=== PATIENT | male | born 1955 | race African-American/Black ===

== ENCOUNTER 2020-07-16 11:56 | Day surgery (SDC) | payer OTHER, SELFPAY ==
[2020-07-09 17:42] VITALS: BMI 64.4
--- NOTE | 2020-07-15 09:19 | HO.ANESPROP2 ---
Documented by User: Ashley Bauer 07/15/20 09:20 HPI - Anesthesia Eval Consult details Narrative: 65yo M for Colonoscopy PMFSH Past Medical History Medical History Arthritis Asthma Diabetes HTN (hypertension) Hypercholesteremia Surgical History Surgical History History of colonoscopy Social History Social History Smoking Status: Former smoker Smoking Quit Date: 2009 Use of substances other than those prescribed or required for medical reasons: No Advance Directives: Yes Advance Directives Information Provided: Yes Advance Directives on File: No Advance Directives Date on File: 09/17/00 Meds Allergies Allergy/AdvReac Type Severity Reaction Status Date / Time hydrochlorothiazide Allergy Intermediate LEG Verified 07/16/20 12:18 [HYDROCHLOROTHIAZIDE] CRAMPING Home Medications Medication Instructions Recorded Confirmed Type acetaminophen [Tylenol] 325 mg PO DAILY 07/09/20 07/09/20 History albuterol sulfate 2 puff INHALATION Q4-6H PRN 07/09/20 07/09/20 History amlodipine 10 mg PO DAILY 07/09/20 07/09/20 History diclofenac potassium 50 mg PO BID 07/09/20 07/09/20 History fluticasone propionate [Flovent] 1 puff INHALATION BID 07/09/20 07/09/20 History ipratropium-albuterol [Combivent 1 puff INHALATION QID 07/09/20 07/09/20 History Respimat] lisinopril 40 mg PO DAILY 07/09/20 07/09/20 History metformin 500 mg PO DAILY 07/09/20 07/09/20 History metoprolol succinate 37.5 mg PO DAILY 07/09/20 07/09/20 History naproxen sodium [Aleve] 220 mg PO DAILY 07/09/20 07/09/20 History omega 7-zdj-qyv-fish oil [Fish Oil] 1 cap PO DAILY 07/09/20 07/09/20 History pravastatin 40 mg PO DAILY 07/09/20 07/09/20 History Exam Exam Date and Time: July 15, 2020918 Height,Weight and Vital Signs: Height 5 ft 9 in Weight 198 kg Assessment and Plan Assessment Anesthesia Assessment: Chart Reviewed Documented by User: Malina Stewart 07/16/20 13:33 PMF Past Medical History Medical History Arthritis Asthma Diabetes HTN (hypertension) Hypercholesteremia Surgical History Surgical History History of colonoscopy Social History Social History Smoking Status: Former smoker Smoking Quit Date: 2009 Use of substances other than those prescribed or required for medical reasons: No Advance Directives: Yes Advance Directives Information Provided: Yes Advance Directives on File: No Advance Directives Date on File: 09/17/00 Meds Allergies Allergy/AdvReac Type Severity Reaction Status Date / Time hydrochlorothiazide Allergy Intermediate LEG Verified 07/16/20 12:18 [HYDROCHLOROTHIAZIDE] CRAMPING Home Medications Medication Instructions Recorded Confirmed Type acetaminophen [Tylenol] 325 mg PO DAILY 07/09/20 07/09/20 History albuterol sulfate 2 puff INHALATION Q4-6H PRN 07/09/20 07/09/20 History amlodipine 10 mg PO DAILY 07/09/20 07/09/20 History diclofenac potassium 50 mg PO BID 07/09/20 07/09/20 History fluticasone propionate [Flovent] 1 puff INHALATION BID 07/09/20 07/09/20 History ipratropium-albuterol [Combivent 1 puff INHALATION QID 07/09/20 07/09/20 History Respimat] lisinopril 40 mg PO DAILY 07/09/20 07/09/20 History metformin 500 mg PO DAILY 07/09/20 07/09/20 History metoprolol succinate 37.5 mg PO DAILY 07/09/20 07/09/20 History naproxen sodium [Aleve] 220 mg PO DAILY 07/09/20 07/09/20 History omega 0-dce-xgx-fish oil [Fish Oil] 1 cap PO DAILY 07/09/20 07/09/20 History pravastatin 40 mg PO DAILY 07/09/20 07/09/20 History Exam Airway Mallampati Class: II TM Dist: >3cm Denture: Upper and Lower Heart: RRR Lungs: CTA
[2020-07-16 12:22] LABS: Glucose, Whole Blood 103 mg/dL (60-115)
[2020-07-16 12:25] VITALS: BP 178/94; PULSE 77; RESP 18; TEMP 36.3; O2SAT 98
[2020-07-16] MEDS: Lactated Ringers 1,000 ML 100 ML IVCONT (12:46)
--- NOTE | 2020-07-16 13:33 | P.CONAN_ITS ---
[facility] Past Medical History Medical History Arthritis Asthma Diabetes HTN (hypertension) Hypercholesteremia Surgical History Surgical History History of colonoscopy Social History Social History Smoking Status: Former smoker Smoking Quit Date: 2009 Use of substances other than those prescribed or required for medical reasons: No Advance Directives: Yes Advance Directives Information Provided: Yes Advance Directives on File: No Advance Directives Date on File: 09/17/00 Meds Allergies Allergy/AdvReac Type Severity Reaction Status Date / Time hydrochlorothiazide Allergy Intermediate LEG Verified 07/16/20 12:18 [HYDROCHLOROTHIAZIDE] CRAMPING Home Medications Medication Instructions Recorded Confirmed Type acetaminophen [Tylenol] 325 mg PO DAILY 07/09/20 07/09/20 History albuterol sulfate 2 puff INHALATION Q4-6H PRN 07/09/20 07/09/20 History amlodipine 10 mg PO DAILY 07/09/20 07/09/20 History diclofenac potassium 50 mg PO BID 07/09/20 07/09/20 History fluticasone propionate [Flovent] 1 puff INHALATION BID 07/09/20 07/09/20 History ipratropium-albuterol [Combivent 1 puff INHALATION QID 07/09/20 07/09/20 History Respimat] lisinopril 40 mg PO DAILY 07/09/20 07/09/20 History metformin 500 mg PO DAILY 07/09/20 07/09/20 History metoprolol succinate 37.5 mg PO DAILY 07/09/20 07/09/20 History naproxen sodium [Aleve] 220 mg PO DAILY 07/09/20 07/09/20 History omega 3-rpg-owt-fish oil [Fish Oil] 1 cap PO DAILY 07/09/20 07/09/20 History pravastatin 40 mg PO DAILY 07/09/20 07/09/20 History Exam Exam Date and Time: July 16, 2020 1333 Height,Weight and Vital Signs: Height 5 ft 9 in Weight 198 kg Last Vital Signs Temp 97.3 F 07/16/20 12:25 Pulse 77 07/16/20 12:25 Resp 18 12/01/20 12:25 BP 178/94 H 07/16/20 12:25 Pulse Ox 98 07/16/20 12:25 Pertinent Lab Results Pertinent Lab Results: Laboratory Tests 07/16/20 12:19 POC Glucose 103 Assessment and Plan Assessment Anesthesia Assessment: Anesthesia Plan Discussed and Chart Reviewed Final Anesthetic Review NPO: Yes ASA Class: II Final Preanesthetic Review: No Changes in Pt Med Stat, Consent Obtained/Reviewed and Anes Risks/Benef Reviewed Patient Risk: Intermediate Procedure Risk: Low Anesthetic Plan Anesthetic Plan: MAC: Disposition: Standard PACU
--- NOTE | 2020-07-16 13:44 | MHC.SHP ---
Pre-Procedural Eval Section B Chief Complaint: SCREENING Relevant Family History (Specify if Yes): No Relevant Social History: None Present Medications: see Short Stay Collaborative assessment Medical History: Significant History (HTN, asthma) History of Previous Operations: No relevant previous surgery Allergies: Allergies Allergy/AdvReac Type Severity Reaction Status Date / Time hydrochlorothiazide Allergy Intermediate LEG Verified 07/16/20 12:18 [HYDROCHLOROTHIAZIDE] CRAMPING Review of Systems Sugical H&P ROS: Negative: Constitution, Cardiovascular, Respiratory, Neurological, Psychiatric, Hem-Onc, Allergic/Immunologic, Gastrointestinal, Genitourinary, Musculoskeletal, Integumentary, Endocrine and Eyes/Ears/Nose/Throat Exam Surgical H&P Exam: Normal: HEENT, Normal: Heart, Normal: Lungs, Normal: Extremities, Normal: Abdomen, Normal: Skin and Normal: Neurological Plan Diagnosis/Plan: Unchanged Patient has been examined and remains a candidate for the planned procedure
--- NOTE | 2020-07-16 14:02 | PM.OP ---
Brief Operative Note Date of Service: 07/16/20 Pre-op diagnosis: colon screen Post-op diagnosis: same Procedure: see op note Surgeon: Jody Sanchez MD Anesthesia: MAC Estimated blood loss (mL): 0 Condition: stable Disposition: PACU
--- NOTE | 2020-07-16 14:03 | W.PM.OPN ---
Operative Note Operative Note Date of Service: 07/16/20 Narrative: Operative Information Procedure Description: Colonoscopy COLONOSCOPY Instrument: Olympus variable stiffness pediatric scope 190L Colonoscopy Monitoring: Vital signs and clinical assessment, continuous EKG monitoring, Pulse oximetry, Carbon Dioxide monitoring and blood pressure monitoring were done throughout the procedure. Colon withdrawal time was 12 minutes. Procedure: The patient was placed in the left lateral decubitis position and pre-procedure medications were administered. After a digital rectal examination of the ano-rectum, the video colonoscope was inserted into the rectum and advanced through the colon to the cecum/TI. The colonoscope was slowly withdrawn in a retrograde panoramic fashion and the colon mucosa was carefully examined including a retroflexed view of the rectum. Findings and interventions are described below. Procedure Difficulty: easy Findings: Terminal Ileum-normal Cecum:normal Ascending Colon: normal Transverse Colon -normal Descending Colon:normal Sigmoid Colon: normal Rectum: Retroflexion with small to moderate sized internal hemorrhoids, grade I Anorectum - normal Colon preparation: [place] Bowel Preparation Scale Right colon; 1 Transverse colon: 1 Left colon; 1 (0 = Unprepared colon segment with mucosa not seen due to solid stool that cannot be cleared. 1 = Portion of mucosa of the colon segment seen, but other areas of the colon segment not well seen due to staining, residual stool and/or opaque liquid. 2 = Minor amount of residual staining, small fragments of stool and/or opaque liquid, but mucosa of colon segment seen well. 3 = Entire mucosa of colon segment seen well with no residual staining, small fragments of stool or opaque liquid) Impression and Post Procedure Diagnosis: internal hemorrhoids Plan: High fiber diet leaflet Avoid straining at stool, epsom salts and sitz bath, anusol supps or cream Repeat Colonoscopy in 1 year due to prep, review instructions for next time Above findings were reviewed with the patient and relevant handouts were provided if indicated.
[2020-07-16 14:08] VITALS: BP 116/63; PULSE 63; RESP 16; TEMP 37.3; O2SAT 96
[2020-07-16 14:26] VITALS: BP 131/76; PULSE 56; RESP 18; TEMP 37.2
== END 2020-07-16 14:42 | disposition home or self-care (01) ==
PROVIDERS: Visit Provider Internal Medicine Gastroenterology
PROC: 0DJD8ZZ Inspection of Lower Intestinal Tract, Via Natural or Artificial Opening Endoscopic (ICD-10-PCS; CPT 45378; principal; 2020-07-16 13:30)
DX: Z12.11 Encounter for screening for malignant neoplasm of colon (principal); K64.0 First degree hemorrhoids; Z86.010 Personal history of colon polyps; I10 Essential (primary) hypertension; E11.9 Type 2 diabetes mellitus without complications; Z79.84 Long term (current) use of oral hypoglycemic drugs; Z79.899 Other long term (current) drug therapy
CPT/HCPCS: G0105; 82947

== ENCOUNTER → 2020-07-23 09:09 | Outpatient (BNVA) | payer OTHER, SELFPAY | PROVIDERS: Visit Provider Physician Assistant | DX: Z76.89 Persons encountering health services in other specified circumstances (principal) ==

== ENCOUNTER 2021-01-31 14:45 | Outpatient (REF) | payer MEDICARE, OTHER, SELFPAY ==
--- NOTE | ~2021-01-31 | XR_ITS ---
EXAMINATION: BILATERAL HIP AND RIGHT KNEE X-RAY CLINICAL INFORMATION: Pain COMPARISON: None TECHNIQUE: One view of the pelvis and 2 views of each hip. 4 views of the right knee FINDINGS: Right knee: No fracture or dislocation is seen. There is arthritis at the femoral tibial and patellofemoral joints with joint space narrowing and osteophyte formation. The patella appears slightly high questionable for patella simon. There is a soft tissue swelling over the patellar tendon. Bone alignment is otherwise normal. There is a small joint effusion. Pelvis and bilateral hip x-ray: There is diffuse increase in size, sclerosis and cortical thickening of the left pelvis suggestive of Paget's disease. There is arthritis at both hip joints with joint space narrowing and osteophyte formation. No fracture or dislocation is seen. There are degenerative changes of the visualized lower lumbar spine. Soft tissues are unremarkable. XR/XR knee RT 4V IMPRESSION: Right knee: Degenerative changes of the patellofemoral and femoral tibial joints. High patella questionable for patella simon and soft tissue swelling over the patellar tendon. Small joint effusion. 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 Bilateral hip arthritis.
--- NOTE | ~2021-01-31 | XR_ITS ---
EXAMINATION: BILATERAL HIP AND RIGHT KNEE X-RAY CLINICAL INFORMATION: Pain COMPARISON: None TECHNIQUE: One view of the pelvis and 2 views of each hip. 4 views of the right knee FINDINGS: Right knee: No fracture or dislocation is seen. There is arthritis at the femoral tibial and patellofemoral joints with joint space narrowing and osteophyte formation. The patella appears slightly high questionable for patella simon. There is a soft tissue swelling over the patellar tendon. Bone alignment is otherwise normal. There is a small joint effusion. Pelvis and bilateral hip x-ray: There is diffuse increase in size, sclerosis and cortical thickening of the left pelvis suggestive of Paget's disease. There is arthritis at both hip joints with joint space narrowing and osteophyte formation. No fracture or dislocation is seen. There are degenerative changes of the visualized lower lumbar spine. Soft tissues are unremarkable. XR/XR hips ANGELA min 3V IMPRESSION: Right knee: Degenerative changes of the patellofemoral and femoral tibial joints. High patella questionable for patella simon and soft tissue swelling over the patellar tendon. Small joint effusion. 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 Bilateral hip arthritis.
== END 2021-01-31 14:46 | disposition home or self-care (01) ==
LOC: HO.XRAY 14:45
PROVIDERS: PCP Registered Nurse; Referring Provider Registered Nurse; Visit Provider Nurse Practitioner Primary Care
DX: M25.551 Pain in right hip (principal); M25.552 Pain in left hip; M25.561 Pain in right knee
CPT/HCPCS: 73522; 73564

== ENCOUNTER 2021-03-20 08:40 | Outpatient (REF) | payer MEDICARE, OTHER, SELFPAY ==
--- NOTE | ~2021-03-20 | US_ITS ---
EXAMINATION: US ABDOMEN COMPLETE CLINICAL INFORMATION: Elevated liver function tests. COMPARISON: CT abdomen with contrast dated 12/14/2007. TECHNIQUE: Real-time imaging of the abdominal viscera. FINDINGS: PANCREAS: Pancreas is completely obscured by overlying gas. ABDOMINAL AORTA: The proximal, mid, and distal segments are normal in caliber. INFERIOR VENA CAVA: Visualized portions are normal. LIVER: Normal. The liver is normal in size. The liver contour is normal. Parenchymal echogenicity is normal. No focal hepatic lesion. There is no intrahepatic biliary duct dilatation seen. GALLBLADDER: The gallbladder wall thickness is 0.25 cm. The gallbladder is physiologically distended without evidence of stones, sludge, polyps, wall thickening or pericholecystic fluid. COMMON BILE DUCT: Normal in caliber measuring 0.42 cm in diameter. RIGHT KIDNEY: There is an anechoic cyst in the right kidney lower pole measuring 1.0 x 0.92 x 1.1 cm. No hydronephrosis or renal calculi. The kidney measures 10.0 cm in maximum dimension. LEFT KIDNEY: There is an anechoic cyst in the midpole measuring 3.3 x 3.0 x 2.6 cm. No hydronephrosis or renal calculi. The kidney measures 10.5 cm in maximum dimension. SPLEEN: Normal. The spleen measures 7.8 cm in maximum dimension. FREE FLUID: None. US/US abdomen complete IMPRESSION: Bilateral renal cysts. No echogenic stones or hydronephrosis. The rest of the abdominal ultrasound is unremarkable.
== END 2021-03-20 08:41 | disposition home or self-care (01) ==
LOC: HO.HMGCX 08:40
PROVIDERS: Visit Provider Nurse Practitioner Primary Care
DX: R74.8 Abnormal levels of other serum enzymes (principal)
CPT/HCPCS: 76700

== ENCOUNTER → 2021-10-22 14:22 | Outpatient (BNVA) | payer MEDICARE, OTHER, SELFPAY | PROVIDERS: Visit Provider Physician Assistant | DX: Z01.818 Encounter for other preprocedural examination (principal) | CPT/HCPCS: 99212 ==

== ENCOUNTER 2021-11-25 08:04 | Day surgery (SDC) | payer MEDICARE, OTHER, SELFPAY ==
[2021-11-17 09:24] VITALS: BMI 32.0
--- NOTE | 2021-11-24 11:20 | HO.ANESPROP2 ---
Documented by User: Ashley Bauer NP 11/24/21 11:20 HPI - Anesthesia Eval Consult details Narrative: 66yo M for Colonoscopy PMFSH Active Problems Active Problems: All Active Problems (Updated 07/15/20 @ 09:20 by Ashley Bauer NP) History of colonoscopy (Acute) H/O colonoscopy with polypectomy (Acute) Past Medical History Medical History Arthritis Asthma Diabetes HTN (hypertension) Hypercholesteremia Family History Family History Father No problems noted. Surgical History Surgical History History of colonoscopy Social History Social History (Updated 10/22/21 @ 14:46 by Ree Lynn PA-C) Household Members Other:: Are you a primary primary care pediatrician to a significant other at home: No Do you presently have visiting nurse or other home services: No Alcohol intake: never Patient Tobacco Use Status: Former Tobacco user Quit Date: 2000 Tobacco use type: Cigarette Are you DNR?: No Advance Directives: Yes Advance Directives Information Provided: No Advance Directives on File: Yes Advance Directives Date on File: 09/17/00 Recently lost weight without trying: No Eating poorly because of decreased appetite: No Nutrition Risks: No Nutritional Risk 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 Allergies Allergy/AdvReac Type Severity Reaction Status Date / Time hydrochlorothiazide Allergy Intermediate LEG Verified 11/17/21 09:48 [HYDROCHLOROTHIAZIDE] CRAMPING Home Medications Medication Instructions Recorded Confirmed Last Taken Type acetaminophen 325 mg tablet 325 mg PO DAILY PRN 07/09/20 11/17/21 Unknown History (Tylenol) albuterol sulfate 90 mcg/actuation 2 puff INHALATION Q4-6H PRN 07/09/20 11/17/21 Unknown History aerosol inhaler amlodipine 10 mg tablet 10 mg PO DAILY 07/09/20 11/17/21 11/25/21 History diclofenac potassium 50 mg tablet 50 mg PO BID 07/09/20 11/17/21 11/23/21 History fluticasone propionate 110 1 puff INHALATION BID 07/09/20 11/17/21 Unknown History mcg/actuation HFA aerosol inhaler ipratropium 20 mcg-albuterol 100 1 puff INHALATION QID 07/09/20 11/17/21 Unknown History mcg/actuation mist for inhalation (Combivent Respimat) lisinopril 40 mg tablet 40 mg PO DAILY 07/09/20 11/17/21 Unknown History metformin 500 mg tablet 500 mg PO DAILY 07/09/20 11/17/21 Unknown History metoprolol succinate 25 mg 37.5 mg PO DAILY 07/09/20 11/17/21 11/25/21 History tablet,extended release 24 hr naproxen sodium 220 mg capsule 220 mg PO DAILY PRN 07/09/20 11/17/21 07/09/20 History (Aleve) 0900 omega 4-gqz-slj-fish oil 60 mg-90 1 cap PO DAILY 07/09/20 11/17/21 11/23/21 History mg-500 mg capsule (Fish Oil) pravastatin 40 mg tablet 40 mg PO DAILY 07/09/20 11/17/21 Unknown History Exam Exam Date and Time: November 24, 2021 1120 Height,Weight and Vital Signs: Height 5 ft 9 in Weight 98.43 kg Assessment and Plan Assessment Anesthesia Assessment: Chart Reviewed Documented by User: Sky Wolff MD 11/25/21 09:51 [facility] Past Medical History Medical History Arthritis Asthma Diabetes HTN (hypertension) Hypercholesteremia Functional capacity: independent ambulation Family History Family History Father No problems noted. Family history of problems with anesthesia: No Surgical History Surgical History History of colonoscopy History of Problems with Anesthesia: No Social History Social History (Updated 10/22/21 @ 14:46 by Ree Lynn PA-C) Household Members Other:: Are you a primary primary care pediatrician to a significant other at home: No Do you presently have visiting nurse or other home services: No Alcohol intake: never Patient Tobacco Use Status: Former Tobacco user Quit Date: 2000 Tobacco use type: Cigarette Are you DNR?: No Advance Directives: Yes Advance Directives Information Provided: No Advance Directives on File: Yes Advance Directives Date on File: 09/17/00 Recently lost weight without trying: No Eating poorly because of decreased appetite: No Nutrition Risks: No Nutritional Risk 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 Allergies Allergy/AdvReac Type Severity Reaction Status Date / Time hydrochlorothiazide Allergy Intermediate LEG Verified 11/17/21 09:48 [HYDROCHLOROTHIAZIDE] CRAMPING Home Medications Medication Instructions Recorded Confirmed Last Taken Type acetaminophen 325 mg tablet 325 mg PO DAILY PRN 07/09/20 11/17/21 Unknown History (Tylenol) albuterol sulfate 90 mcg/actuation 2 puff INHALATION Q4-6H PRN 07/09/20 11/17/21 Unknown History aerosol inhaler amlodipine 10 mg tablet 10 mg PO DAILY 07/09/20 11/17/21 11/25/21 History diclofenac potassium 50 mg tablet 50 mg PO BID 07/09/20 11/17/21 11/23/21 History fluticasone propionate 110 1 puff INHALATION BID 07/09/20 11/17/21 Unknown History mcg/actuation HFA aerosol inhaler ipratropium 20 mcg-albuterol 100 1 puff INHALATION QID 07/09/20 11/17/21 Unknown History mcg/actuation mist for inhalation (Combivent Respimat) lisinopril 40 mg tablet 40 mg PO DAILY 07/09/20 11/17/21 Unknown History metformin 500 mg tablet 500 mg PO DAILY 07/09/20 11/17/21 Unknown History metoprolol succinate 25 mg 37.5 mg PO DAILY 07/09/20 11/17/21 11/25/21 History tablet,extended release 24 hr naproxen sodium 220 mg capsule 220 mg PO DAILY PRN 07/09/20 11/17/21 07/09/20 History (Aleve) 0900 omega 2-pku-aqc-fish oil 60 mg-90 1 cap PO DAILY 07/09/20 11/17/21 11/23/21 History mg-500 mg capsule (Fish Oil) pravastatin 40 mg tablet 40 mg PO DAILY 07/09/20 11/17/21 Unknown History Exam Airway Mallampati Class: II Partial: Upper and Lower Loose/Missing/Broken Teeth: Yes Heart: RRR Lungs: bl breath sounds Assessment and Plan Assessment Anesthesia Assessment: Anesthesia Plan Discussed Final Anesthetic Review Family History of Problems with Anesthesia: No History of Problems with Anesthesia: No NPO: Yes ASA Class: II Final Preanesthetic Review: Meds/Allgs Chart Reviewed, Consent Obtained/Reviewed and Anes Risks/Benef Reviewed Patient Risk: Intermediate Procedure Risk: Intermediate Anesthetic Plan Anesthetic Plan: MAC:
[2021-11-25 08:50] VITALS: BP 147/80; PULSE 74; RESP 16; TEMP 37.1; O2SAT 96
[2021-11-25 08:56] LABS: Glucose, Whole Blood 139 mg/dL (60-115)
[2021-11-25] MEDS: Lactated Ringers 1,000 ML 100 ML IVCONT (09:02)
--- NOTE | 2021-11-25 10:04 | MHC.SHP ---
Pre-Procedural Eval Section A Date of Service: 11/25/21 Section B Chief Complaint: Other specified postprocedural states Relevant Family History (Specify if Yes): No Relevant Social History: None Present Medications: see Short Stay Collaborative assessment Medical History: Significant History (Arthritis Asthma Diabetes HTN (hypertension) Hypercholesteremia) History of Previous Operations: Relevant previous surgery/procedure and date(s) (2019) Allergies: Allergies Allergy/AdvReac Type Severity Reaction Status Date / Time hydrochlorothiazide Allergy Intermediate LEG Verified 11/17/21 09:48 [HYDROCHLOROTHIAZIDE] CRAMPING Review of Systems Sugical H&P ROS: Negative: Constitution, Cardiovascular, Respiratory, Neurological, Psychiatric, Hem-Onc, Allergic/Immunologic, Gastrointestinal, Genitourinary, Musculoskeletal, Integumentary, Endocrine and Eyes/Ears/Nose/Throat Exam Surgical H&P Exam: Normal: HEENT, Normal: Heart, Normal: Lungs, Normal: Extremities, Normal: Abdomen, Normal: Skin and Normal: Neurological Plan Diagnosis/Plan: Unchanged I have reviewed the history and physical and performed a pertinent physical examination on my patient. No changes have occurred unless specified.
--- NOTE | 2021-11-25 10:05 | P.BOP_ITS ---
Brief Operative Note Date of Service: 11/25/21 Pre-op diagnosis: screening colonoscopy, hx of polyps Post-op diagnosis: same Procedure: see op note Surgeon: Jody Sanchez MD Anesthesia: MAC Was an Net Making Supervisor used for this Procedure?: No Estimated blood loss (mL): 0 Condition: stable Disposition: PACU
--- NOTE | 2021-11-25 10:06 | W.PM.OPN ---
Operative Note Operative Note Date of Service: 11/25/21 Narrative: Operative Information Procedure Description: Colonoscopy Indication: screening colonoscopy, hx of polyps Anesthesia: MAC COLONOSCOPY Instrument: Olympus variable stiffness ADULT scope 190L Colonoscopy Monitoring: Vital signs and clinical assessment, continuous EKG monitoring, Pulse oximetry, Carbon Dioxide monitoring and blood pressure monitoring were done throughout the procedure. Colon withdrawal time was 10 minutes. Procedure: The patient was placed in the left lateral decubitis position and pre-procedure medications were administered. After a digital rectal examination of the ano-rectum, the video colonoscope was inserted into the rectum and advanced through the colon to the cecum/TI. The colonoscope was slowly withdrawn in a retrograde panoramic fashion and the colon mucosa was carefully examined including a retroflexed view of the rectum. Findings and interventions are described below. Procedure Difficulty: easy Findings: Terminal Ileum-normal Cecum:normal Ascending Colon: 3-4 mm sessile polyp removed with cold forceps Transverse Colon -normal Descending Colon:normal Sigmoid Colon: normal Rectum: Retroflexion with small internal hemorrhoids, grade I 4-5 mm sessile polyp removed with cold forceps Anorectum - normal Colon preparation: [place] Bowel Preparation Scale Right colon; 3 Transverse colon: 3 Left colon; 3 (0 = Unprepared colon segment with mucosa not seen due to solid stool that cannot be cleared. 1 = Portion of mucosa of the colon segment seen, but other areas of the colon segment not well seen due to staining, residual stool and/or opaque liquid. 2 = Minor amount of residual staining, small fragments of stool and/or opaque liquid, but mucosa of colon segment seen well. 3 = Entire mucosa of colon segment seen well with no residual staining, small fragments of stool or opaque liquid) Impression and Post Procedure Diagnosis: polyps internal hemorrhoids Plan: High fiber diet leaflet Avoid straining at stool, epsom salts and sitz bath, anusol supps or cream Repeat Colonoscopy in 5 years due to personal hx of recurrent polyps or earlier if clinically indicated Above findings were reviewed with the patient and relevant handouts were provided if indicated.
[2021-11-25 10:40] VITALS: BP 99/63; PULSE 65; RESP 16; TEMP 36.3; O2SAT 97
[2021-11-25 10:55] VITALS: BP 107/68; PULSE 60; RESP 17; O2SAT 99
[2021-11-25 11:10] VITALS: BP 138/68; PULSE 60; RESP 17; TEMP 36.3; O2SAT 99
== END 2021-11-25 11:31 | disposition home or self-care (01) ==
PROVIDERS: Visit Provider Internal Medicine Gastroenterology
PROC: 0DJD8ZZ Inspection of Lower Intestinal Tract, Via Natural or Artificial Opening Endoscopic (ICD-10-PCS; CPT 45378; principal; 2021-11-25 09:20)
DX: Z12.11 Encounter for screening for malignant neoplasm of colon (principal); Z86.010 Personal history of colon polyps; D12.2 Benign neoplasm of ascending colon; K62.1 Rectal polyp; K64.0 First degree hemorrhoids; I10 Essential (primary) hypertension; J45.909 Unspecified asthma, uncomplicated; E78.00 Pure hypercholesterolemia, unspecified; E11.9 Type 2 diabetes mellitus without complications; Z79.84 Long term (current) use of oral hypoglycemic drugs; Z79.51 Long term (current) use of inhaled steroids; Z79.899 Other long term (current) drug therapy; Z88.8 Allergy status to other drugs, medicaments and biological substances; Z87.891 Personal history of nicotine dependence; Z86.16 Personal history of COVID-19
CPT/HCPCS: 45380; 82947; 88305

== ENCOUNTER → 2021-12-10 14:44 | Outpatient (BNVA) | payer MEDICARE, OTHER, SELFPAY | PROVIDERS: Visit Provider Physician Assistant | DX: K64.9 Unspecified hemorrhoids (principal); D12.6 Benign neoplasm of colon, unspecified | CPT/HCPCS: 99202 ==

== ENCOUNTER 2021-12-23 14:14 | Outpatient (REF) | payer MEDICARE, OTHER, SELFPAY ==
--- NOTE | ~2021-12-23 | US_ITS ---
EXAMINATION: US RETROPERITONEAL LIMITED (AORTA) CLINICAL INFORMATION: History of nicotine dependence. AAA screening. COMPARISON: December 14, 2007 and March 20, 2021 TECHNIQUE: Cole-scale, color Doppler and spectral Doppler evaluation of the abdominal aorta. FINDINGS: No significant atherosclerotic disease is appreciated. The measurements of the aorta in maximum AP and transverse dimensions respectively are as follows: Proximal: 2.7 x 2.9 cm. Mid: 2.2 x 2.1 cm. Distal: 1.8 x 1.8 cm. PSV: 114 cm/s. The measurements of the common iliac arteries in maximum AP and TRV dimensions are as follows: Right Common Iliac Artery: 1.3 x 1.5 cm. Left Common Iliac Artery: 1.3 x 1.4 cm. US/US aorta IMPRESSION: No abdominal aortic aneurysm. No significant atherosclerotic disease appreciated..
== END 2021-12-23 14:15 | disposition home or self-care (01) ==
LOC: HO.US 14:14
PROVIDERS: Visit Provider Nurse Practitioner
DX: Z13.6 Encounter for screening for cardiovascular disorders (principal); Z87.891 Personal history of nicotine dependence
CPT/HCPCS: 76775

== ENCOUNTER 2024-05-22 08:15 | Outpatient (REF) | payer MEDICARE, OTHER, SELFPAY ==
--- NOTE | ~2024-05-22 | US_ITS ---
EXAMINATION: US TRIPLEX LOWER EXTREMITY, LEFT CLINICAL INFORMATION: LLE swelling COMPARISON: None available. TECHNIQUE: Color-flow triplex imaging with spectral analysis and compression Doppler were performed on the left lower extremity. FINDINGS: Respiratory variation, normal compression and augmented flow are noted throughout the left lower extremity. The visualized common femoral vein, superficial femoral vein, profunda femoral vein, popliteal vein and midcalf peroneal and posterior tibial venous segments show no evidence of deep venous thrombosis. There is no West's cyst. US/US venous duplex LE LT IMPRESSION: No evidence of deep venous thrombosis involving the left lower extremity. Electronically signed by: Janet Muñoz MD 05/22/2024 09:01 AM EDT RP
== END 2024-05-22 08:16 | disposition home or self-care (01) ==
LOC: HO.HMGCX 08:15
PROVIDERS: PCP Nurse Practitioner Primary Care; Visit Provider Nurse Practitioner Primary Care
DX: R60.0 Localized edema (principal)
CPT/HCPCS: 93971

== ENCOUNTER 2024-06-22 11:09 | Outpatient (REF) | payer MEDICARE, OTHER, SELFPAY ==
[2024-06-22 13:20] LABS: MANUAL DIFF FLAG NO
[2024-06-22 13:46] LABS: Basophils Percent Auto 0.3 % (0-2); Eosinophils Percent Auto 0.3 % (0-4); Hematocrit 39.2 % (42.0-52.0); Hemoglobin 13.1 g/dl (14.0-18.0); Imm Gran Abs Auto 0.03 X10*3/uL (0.00-0.03); Imm Gran Pct Auto 0.4 % (0.0-0.4); Lymphocytes Absolute Auto 2.1 X10*3/uL (1.2-4.9); Lymphocytes Percent Auto 27.3 % (20-40); Mean Corpuscular HGB Conc 33.4 g/dl (31.0-36.0); Mean Corpuscular Hemoglobin 28.8 pg (27.0-33.0); Mean Corpuscular Volume 86.2 fL (80.0-98.0); Mean Platelet Volume 13.1 fL (9.4-12.4); Monocytes Absolute Auto 0.4 X10*3/uL (0.1-1.2); Monocytes Percent Auto 5.2 % (2-11); Neutrophils Percent Auto 66.5 % (45-73); Platelet Count 210 X10*3/uL (160-400); Red Blood Count 4.55 X10*6/uL (4.60-5.80); Red Cell Distribution Width 13.8 % (11.0-16.0); White Blood Count 7.6 X10*3/uL (4.8-10.8)
[2024-06-22 13:53] LABS: Alanine Aminotransferase 10 U/L (0-40); Albumin Level 4.3 g/dL (3.5-5.0); Alkaline Phosphatase 84 U/L (39-117); Anion Gap 12 (12-20); Aspartate Amino Transferase 18 U/L (5-37); Bilirubin Total 0.6 mg/dL (0.0-1.0); Blood Urea Nitrogen 11 mg/dL (9-16); Calcium 9.3 mg/dL (8.4-10.2); Carbon Dioxide 26 mmol/L (22-29); Chloride 105 mmol/L (96-108); Cholesterol 187 mg/dL (<200); Estimated Glomerular Filt Rate > 60; Glucose Random 117 mg/dL (60-115); HDL Cholesterol 62 mg/dL (>40); LDL Cholesterol Calculated 103 mg/dL (<100); Potassium 4.1 mmol/L (3.3-5.1); Sodium 139 mmol/L (135-145); Total Protein 7.7 g/dL (6.5-8.0); Triglycerides 114 mg/dL (<150)
[2024-06-22 14:02] LABS: Estimated Average Glucose 128 mg/dL; Hemoglobin A1C 150.1828 umol/L; Hemoglobin A1c % 6.1 % (<6.0); Total Hemoglobin (HGBA1C) 3471.8411 umol/L
[2024-06-22 14:05] LABS: Creatinine Urine 164.94 mg/dL; Microalbum/Creatinine Ratio Ur 22.4 ug/mg cr (<30)
== END 2024-06-22 11:10 | disposition home or self-care (01) ==
LOC: HO.HHCL 11:09
PROVIDERS: Visit Provider Nurse Practitioner Primary Care
DX: I15.2 Hypertension secondary to endocrine disorders (principal); E11.59 Type 2 diabetes mellitus with other circulatory complications
CPT/HCPCS: 36415; 80053; 80061; 82043; 82570; 83036; 85025

== ENCOUNTER → 2025-01-23 14:08 | Outpatient (BNVA) | payer MEDICARE, SELFPAY | PROVIDERS: PCP Nurse Practitioner Primary Care; Visit Provider Internal Medicine Rheumatology ==

== ENCOUNTER → 2025-02-12 08:33 | Outpatient (REF) | payer MEDICARE, SELFPAY | LOC: HO.CARD 08:33 | PROVIDERS: PCP Nurse Practitioner Primary Care; Visit Provider Nurse Practitioner Primary Care | DX: I49.9 Cardiac arrhythmia, unspecified (principal) | CPT/HCPCS: 93225 ==

== ENCOUNTER → 2025-02-12 08:35 | Outpatient (BNV) | payer MEDICARE, SELFPAY | PROVIDERS: PCP Nurse Practitioner Primary Care; Visit Provider Internal Medicine | DX: R00.1 Bradycardia, unspecified (principal) | CPT/HCPCS: 93227 ==

== ENCOUNTER 2025-04-24 13:04 | Outpatient (AMB) | payer MEDICARE, SELFPAY ==
--- NOTE | 2025-04-24 13:07 | A.OFFVIS_ITS ---
Vital Signs 04/24/25 13:08 Height 5 ft 9 in Weight 216 lb 11.43 oz BMI 32.0 BP 130/90 H Blood Pressure Location Rt brachial Position Sitting Pulse 55 Pulse Source Pulse Oximeter Pulse Oximetry (%) 98 Oxygen Delivery Method Room Air Intake Visit Reasons: 3 month follow up Intake Note: Patient presents today for arthritis follow up Allergies hydrochlorothiazide (HYDROCHLOROTHIAZIDE) Allergy (Intermediate, Verified 04/24/25 13:07) LEG CRAMPING HPI HPI 3 month follow up: Details: Pain and stiffness from waist down for the last few months. Feels hips pop with certain movements. He has to help is body get up from a squatted position. Rest for 10min contributes to stiffness. Walking for long distance contributes to stiffness. Takes 1500mg in the morning with benefit. 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 He is physically active. [facility] Medical History Tubular adenoma of colon Arthritis Asthma Hypercholesteremia HTN (hypertension) Diabetes Surgical History History of colonoscopy Family History Father No problems noted. Social History Household Members Other:: Are you a primary morning caregiver to a significant other at home: No Do you presently have visiting nurse or other home services: No Alcohol intake: never Patient Tobacco Use Status: Former Tobacco user Tobacco use type: Cigarette Advance Directives Date on File: 09/17/00 Current occupation: deliver [employer] Physical Exam Vital Signs: Last Vital Signs Pulse 55 04/24/25 13:08 BP 130/90 H 04/24/25 13:08 Pulse Ox 98 04/24/25 13:08 Oxygen Delivery Method Room Air 04/24/25 13:08 BMI result Body Mass Index 32.0 Const Other: General: Comfortable Skin: No lesions MSK: Left groin tenderness on palpation. No trochanteric bursa tenderness. Limited full external rotation of bilateral hips. He has pain with external rotation of left hip and groin region. Right knee fuub-bo-lqhyjran effusion, left knee mild effusion. Normal range of motion of bilateral knees. Normal lumbar flexion. No tenderness of lumbar spinous process. Assessment & Plan Assessment & Plan (1) Bilateral primary osteoarthritis of hip: Comment: Likely progressing contributing to groin pain. X-ray October 2023 revealed mild bilateral hip osteoarthritis. We discussed conservative management. Code(s): M16.0 - Bilateral primary osteoarthritis of hip Category: Medical Plan: X-rays bilateral hips and pelvis ordered Labs ordered. After lab results are back, we will send prescription for meloxicam 15 mg daily. Reduce Tylenol to 1000 mg daily a.m.. He is aware that he can take another 1000 mg in the afternoon or evening PRN pain PT ordered for lower extremity strengthening Return to clinic in 3 months (2) Paget's disease of bone: Comment: Initially found incidentally on pelvis x-ray involving left pelvis. Nuclear bone scan confirmed involvement of left ilium, pubis and ischium. Elevated alkaline phosphatase, bone specific alkaline phosphatase, C telopeptide on presentation in 2020. Bone turnover markers normalized after Reclast 07/2021 and 07/2022. Code(s): M88.9 - Osteitis deformans of unspecified bone Category: Medical Plan: Bone turnover markers, calcium, phosphorus, vitamin-D ordered Bone density ordered. Bone densities indicated for osteoporosis screening age 70. Return to clinic in 3 months (3) Osteoporosis screening: Code(s): Z13.820 - Encounter for screening for osteoporosis Category: Medical Plan: See above Orders: Orders PT Evaluation and Treatment Today M16.0 - Bilateral primary osteoarthritis of hip Alanine Aminotransferase Today M88.9 - Osteitis deformans of unspecified bone, Z79.1 - termite helper (current) use of non-steroidal anti-inflammatories (NSAID) Albumin Level Today M88.9 - Osteitis deformans of unspecified bone XR DEXA axial skeleton Today M88.9 - Osteitis deformans of unspecified bone, Z13.820 - Encounter for screening for osteoporosis XR DEXA appendicular skeleton Today M88.9 - Osteitis deformans of unspecified bone, Z13.820 - Encounter for screening for osteoporosis XR hip BI w PEL1V Today M16.0 - Bilateral primary osteoarthritis of hip, M88.9 - Osteitis deformans of unspecified bone Aspartate Amino Transferase Today M88.9 - Osteitis deformans of unspecified bone, Z79.1 - [facility] (current) use of non-steroidal anti-inflammatories (NSAID) Creatinine Today M88.9 - Osteitis deformans of unspecified bone, Z79.1 - [facility] (current) use of non-steroidal anti-inflammatories (NSAID) Collagen Type I C-Telopeptide Today M88.9 - Osteitis deformans of unspecified bone Alkaline Phosphatase Bone Today M88.9 - Osteitis deformans of unspecified bone Phosphorus Today M88.9 - Osteitis deformans of unspecified bone Calcium Today M88.9 - Osteitis deformans of unspecified bone Vitamin D 25-OH Total Today M88.9 - Osteitis deformans of unspecified bone Alkaline Phosphatase Today M88.9 - Osteitis deformans of unspecified bone Coding Level of Care Code Est Pt Level 4 (30387) Complex EM visit Add On G2211 Diagnoses Bilateral primary osteoarthritis of hip M16.0 Paget's disease of bone M88.9 Osteoporosis screening Z13.820
[2025-04-24 13:08] VITALS: BP 130/90; PULSE 55; O2SAT 98; BMI 32.0
--- OUTSIDE RECORDS SUMMARY | 2025-04-24 15:22 | XMS_ITS | Encounter Summary ---
Author Organization [employer] Address [address] [place] [address] Care Team Providers Care Mixer And Blender Name Role Phone Eunice Carmichael Primary Care Provider [phone] Reason for Visit * Reason Comments Med Refill Encounter Details Date Type Department Care Team ([facility] st Contact Info) Description 08/14/2024 Refill [facility] MED & PEDS [address] [place], [place] [phone] Eunice Carmichael ANP [address] [place] [address] Erectile dysfunction due to diseases classified elsewhere Social History Tobacco Use Types Packs/Day Years Used Date Smoking Tobacco: Former Cigarettes Smokeless Tobacco: Never Alcohol Use Standard Drinks/Week Comments Not Currently 0 (1 standard drink = 0.6 oz pur e alcohol) Housing Stability Answer Date Recorded What is your housing situation today? I have harjit arroyo 05/31/[address] you li ve. Do you have problems with any of the following? None of the above 05/31/2023 Food Insecurity Answer Date Recorded Within the past 12 months, y ou worried that your food would run out before you got money to buy more: Never True 05/31/2023 Within the past 12 months,th e food you bought just didn't last and you didn't have enough money to get more: Never True Transportation Answer Date Recorded In the past 12 months, has l ack of transportation kept you from medical appts, meetings, work or from getting things needed for daily living? No 05/31/2023 Utilities Answer Date Recorded In the past 12 months, has t he electric, gas, oil or water company threatened to shut off services in your home? No 05/31/2023 Depression Answer Date Recorded Patient Health Questionnaire-2 Score 0 05/27/2023 Sex and Gender Information Value Date Recorded Sex Assigned at Male 06/15/2022 10:18 AM EDT Legal Sex Male 10:18 AM EDT Gender Identity Male 06/15/2022 10:18 AM EDT Sexual Orientation Straight 06/22/2024 10 :06 AM EST documented as of this encounter Plan of Treatment Upcoming Encounters Date Type Department Care Team (Late st Contact Info) Description 06/18/2025 11:15 AM EST Office Visit [facility] MED[facility]INE [address] [place] [address] Eunice Carmichael ANP [address] [place] [address] documented as of this encounter Visit Diagnoses Diagnosis Erectile dysfunction due to diseases classified elsewhere documented in this encounter Care Teams Mixer And Blender Relationship Specialty Start Date End Date Eunice Carmichael ANP [address] [place] [id number] PCP - General Family Medicine 04/07/22 documented as of this encounter
--- OUTSIDE RECORDS SUMMARY | 2025-04-24 15:22 | XMS_ITS | Encounter Summary ---
Author Organization [employer] Address [address] [place] [address] Care Team Providers Care Spooler Operator Automatic Name Role Phone Eunice Carmichael Primary Care Provider [phone] Encounter Details Date Type Department Care Team ([facility] st Contact Info) Description 04/23/2025 Orders Only [facility] MEDICINE [address] [place], [place] [phone] Eunice Carmichael ANP [address] [place], [place] [phone] Social History Tobacco Use Types Packs/Day Years Used Date Smoking Tobacco: Former Cigarettes Smokeless Tobacco: Never Alcohol Use Standard Drinks/Week Comments Not Currently 0 (1 standard drink = 0.6 oz pur e alcohol) Depression Answer Date Recorded Patient Health Questionnaire-9 Score 0 10/09/2024 Patient Health Questionnaire-9 Score 0 10/09/2024 Last PHQ-9: Questionnaire Data Not on file 0 10/09/2024 Housing Stability Answer Date Recorded What is your housing situation today? I have harjit arroyo 10/09/[address] you li ve. Do you have problems with any of the following? None of the above 10/09/2024 Food Insecurity Answer Date Recorded Within the past 12 months, y ou worried that your food would run out before you got money to buy more: Sometimes True 2024 Within the past 12 months,th e food you bought just didn't last and you didn't have enough money to get more: Sometimes True 10/09/2024 Transportation Answer Date Recorded In the past 12 months, has l ack of transportation kept you from medical appts, meetings, work or from getting things needed for daily living? No 10/09/2024 Utilities Answer Date Recorded In the past 12 months, has t he electric, gas, oil or water company threatened to shut off services in your home? No 10/09/2024 Depression Answer Date Recorded Patient Health Questionnaire-2 Score 0 10/09/2024 Internet Access Answer Date Recorded Internet Access Q1 No 10/09/2024 Internet Access Q2 Not on file 10/09/2024 Sex and Gender Information Value Date Recorded Sex Assigned at Male 06/15/2022 10:18 AM EDT Legal Sex Male 10:18 AM EDT Gender Identity Male 06/15/2022 10:18 AM EDT Sexual Orientation Straight 06/22/2024 10 :06 AM EST documented as of this encounter Plan of Treatment Upcoming Encounters Date Type Department Care Team (Late st Contact Info) Description 06/18/2025 11:15 AM EST Office Visit [facility] MEDICINE [address] [place] [phone] Eunice Carmichael ANP [address] [place] [address] documented as of this encounter Visit Diagnoses Not on filedocumented in this encounter Additional Health Concerns Assessment Noted Time PHQ-9 Depression Total Score: 0 10/09/19 25 4:12 PM EST documented as of this encounter Care Teams Spooler Operator Automatic Relationship Specialty Start Date End Date Eunice Carmichael ANP [address] [place] [id number] PCP - General Family Medicine 04/07/22 documented as of this encounter
--- OUTSIDE RECORDS SUMMARY | 2025-04-24 15:22 | XMS_ITS | Encounter Summary ---
Author Organization [employer] Address [address] [facility] 7t [place] [address] Care Team Providers Care Parliamentary Archivist Name Role Phone Eunice Carmichael Primary Care Provider [phone] Reason for Visit * Reason Comments Med Refill Encounter Details Date Type Department Care Team ([facility] st Contact Info) Description 01/29/2025 [facility]ill [facility] [address] [place], [place] [phone] Eunice Carmichael ANP [address] [place] [address] Moderate persistent asthma without complication Social History Tobacco Use Types Packs/Day Years [...] Description 06/18/2025 11:15 AM EST Office Visit [facility] [address] [place] [address] Eunice Carmichael ANP [address] [place] [address] documented as of this encounter Visit Diagnoses Diagnosis Moderate persistent asthma without complication documented in this encounter Additional Health Concerns Assessment Noted Time PHQ-9 Depression Total Score: 0 10/09/19 25 4:12 PM EST documented as of this encounter Care Teams Parliamentary Archivist Relationship Specialty Start Date End Date Eunice Carmichael ANP [address] [place] [phone] PCP - General Family Medicine 04/07/22 documented as of this encounter
--- OUTSIDE RECORDS SUMMARY | 2025-04-24 15:22 | XMS_ITS | Patient Health Record ---
Author Organization [facility] Address [address] [place] [address] Care Team Providers Care Software Configuration Specialist Name Role Phone Colt Antonio MD, Christiano Primary Care Provide r Javier Jose Unavailable [phone] Reason For Referral No Information Medications Medication SIG (Take, Route, Frequency, Duration) Notes Start Date End Date Status hydroCHLOROthiazide 25mg Active Simvastatin 20mg Act christina Norvasc 10mg Active Atenolol 25mg Active Flovent HFA 220mcg A ctive Albuterol Sulfate 90mcg Active Colyte with Flavor Packs 240 GM as direc lita Orally as directed for 1 day(s) 12/22/2012 Active Problems Problem Type SNOMED Code ICD Code Onset Dates Problem Status W/U Status Risk Notes Problem Long-term current use of drug therapy (758456701) Encounter for long-term (current) use of other medications (V58.69) Active confirmed Problem Colon cancer screening (773742288) Colon cancer screening (V76.51) Active confirmed Problem History of polyp of colon (situation) (286489582) History of colon polyps (V12.72) Active confirmed Plan Of Treatment Future Test Test Name Order Date COLONOSCOPY 12/22/2012 Insurance Providers Payer Name Payer Address Payer Phone Subscriber Number Group Number Insured Name Patient Relationship to Insured Coverage Start Date Coverage End Date [facility] [employer] [address] [place] [address] [id number] [place] Self - patient is the insured [place] [address] [place] [address] [id number] [place] Self - patient is the insured Medical (General) History Medical History History ICD Code HTN Denies TN,DM,CVA,renal disease Asthma Hyperlipidemia Surgical History Surgery Date(Month/Year) Vasectomy
--- OUTSIDE RECORDS SUMMARY | 2025-04-24 15:22 | XMS_ITS | Encounter Summary ---
Author Organization [employer] Address [address] [facility] [address] [place] [address] Care Team Providers Care Elementary Educator Name Role Phone Eunice Carmichael Primary Care Provider [phone] Reason for Visit * Reason Comments Med Refill Encounter Details Date Type Department Care Team ([facility] st Contact Info) Description 01/22/2025 Refill [facility] MED & PEDS [address] [place], [place] [phone] Eunice Carmichael ANP [address] [place] [address] Moderate persistent asthma without complication Social History [...] Description 06/18/2025 11:15 AM EST Office Visit [facility] MEDICINE [address] [place] [phone] Eunice Carmichael ANP [address] [place] [address] documented as of this encounter Visit Diagnoses Diagnosis Moderate persistent asthma without complication documented in this encounter Additional Health Concerns Assessment Noted Time PHQ-9 Depression Total Score: 0 10/09/19 25 4:12 PM EST documented as of this encounter Care Teams Elementary Educator Relationship Specialty Start Date End Date Eunice Carmichael ANP [address] [place] [phone] PCP - General Family Medicine 04/07/22 documented as of this encounter
--- OUTSIDE RECORDS SUMMARY | 2025-04-24 15:22 | XMS_ITS | Encounter Summary ---
Author Organization [employer] Address [address] [facility] 7t [place] [address] Care Team Providers Care Overhauler Name Role Phone Eunice Carmichael Primary Care Provider [phone] Reason for Visit * Reason Comments Med Refill Encounter Details Date Type Department Care Team ([facility] st Contact Info) Description 01/23/2025 Refill [facility] MED & PEDS [address] [place], [place] [phone] Eunice Carmichael ANP [address] [place] [address] Moderate persistent asthma without complication Social History [...] Description 06/18/2025 11:15 AM EST Office Visit [facility] MEDICINE [address] [place] [address] Eunice Carmichael ANP [address] [place] [address] documented as of this encounter Visit Diagnoses Diagnosis Moderate persistent asthma without complication documented in this encounter Additional Health Concerns Assessment Noted Time PHQ-9 Depression Total Score: 0 10/09/19 25 4:12 PM EST documented as of this encounter Care Teams Overhauler Relationship Specialty Start Date End Date Eunice Carmichael ANP [address] [place] [phone] PCP - General Family Medicine 04/07/22 documented as of this encounter
--- OUTSIDE RECORDS SUMMARY | 2025-04-24 15:22 | XMS_ITS | Clinical Summary ---
Author Organization [employer] Address 75 [facility] 7t [place] [address] Care Team Providers Care Globe Tester Name Role Phone Eunice Carmichael RACHEL Primary Care Provider [phone] Allergies Active Allergy Reactions Criticality Noted Date Comments Chlorthalidone High 11/20/2016 Other reaction(s): lightheadness, hot flashes, weak Hydrochlorothiazide High 09/23/2016 Other reaction(s): Muscle Cramping Metformin Dizziness 05/27/2023 Simvastatin 11/28/2013 Other reaction(s): muscle and body pains, cramps Medications acetaminophen (Tylenol) 500 MG tablet 016 Active glucose blood (FREESTYLE LITE) test strip Apply 1 strip topically every 8 (eight) hours. 020 Active spironolactone (Aldactone) 25 MG tablet TAKE 1 TABLET BY MOUTH EVERY DAY IN THE MORNING 90 tablet 3 024 Active triamcinolone (Kenalog) 0.1 % creamIndications: Skin pruritus Apply topically 2 times daily. 45 g 1 024 Active predniSONE (Deltasone) 20 MG tabletIndications :Right leg pain,Low back pain radiating to right leg Take 2 tabs once daily for 5 days, take with food 10 tablet 024 Active tiZANidine (Zanaflex) 2 MG tabletIndications :Low back pain radiating to right leg 1-2 tabs at bedtime as needed for muscle pain 20 tablet 024 Active naproxen (Naprosyn) 500 MG tabletIndications :Low back pain radiating to right leg Take 1 tab twice daily for 5-7 days, then take as needed up to twice daily; take with food 60 tablet 024 Active cholecalciferol VITAMIN D (Vitamin D-3) 50 MCG (2000 UT) tabletIndications :Vitamin D deficiency TAKE 1 TABLET BY MOUTH EVERY MORNING 90 tablet 1 025 Active NIFEdipine XL (Procardia XL) 30 MG 24 hr tabletIndications :Essential hypertension TAKE 1 TABLET BY MOUTH EVERY DAY. DO NOT BREAK, CRUSH, DISSOLVE OR CHEW. 30 tablet 2 025 Active Januvia 25 MG tabletIndications :Type 2 diabetes mellitus with hyperlipidemia (CMS/HCC) (CMS/HCC) TAKE 1 TABLET BY MOUTH EVERY DAY IN THE MORNING 30 tablet 5 025 Active pravastatin (Pravachol) 40 MG tabletIndications :Hypertension associated with type 2 diabetes mellitus (CMS/HCC) Take 1 tablet (40 mg) by mouth Once per day. 90 tablet 1 025 Active metoprolol succinate XL (Toprol-XL) 25 MG 24 hr tablet TAKE 1 TABLET BY MOUTH EVERY MORNING 90 tablet 1 025 Active metoprolol succinate XL (Toprol-XL) 50 MG 24 hr tabletIndications :Essential hypertension TAKE 1 TABLET BY MOUTH DAILY 90 tablet 1 025 Active Viagra 100 MG tabletIndications :Erectile dysfunction due to diseases classified elsewhere TAKE 1 TABLET 1 HOUR BEFORE SEXUAL RELATIONS ONCE DAILY NEEDED. 20 tablet 2 025 Active montelukast (Singulair) 10 MG tablet TAKE 1 TABLET BY MOUTH EVERY DAY IN THE EVENING 90 tablet 3 025 Active Combivent Respimat 20-100 MCG/ACT inhaler INHALE 1 PUFF 4 TIMES A DAY, MAY TAKE ADDITIONAL PUFFS NEEDED. (MAX OF 6 PUFFS PER DAY) 4 g 5 025 Active Arnuity Ellipta 200 MCG/ACT inhaler INHALE 1 PUFF BY MOUTH EVERY DAY AT THE SAME TIME RINSE MOUTH AFTER USING 30 each 3 025 Active lisinopril 40 MG tabletIndications :Essential hypertension TAKE 1 TABLET BY MOUTH EVERY MORNING 90 tablet 1 025 Active Combivent Respimat 20-100 MCG/ACT inhaler INHALE 1 PUFF BY MOUTH FOUR TIMES DAILY, MAY TAKE ADDITIONAL PUFFS NEEDED, DO NOT EXCEED 6 PUFFS IN 24 HOURS 4 g 5 024 2024 Discontinued montelukast (Singulair) 10 MG tablet TAKE 1 TABLET BY MOUTH DAILY IN THE EVENING 90 tablet 3 024 2024 Discontinued lisinopril 40 MG tabletIndications :Essential hypertension TAKE 1 TABLET BY MOUTH EVERY MORNING 90 tablet 1 025 2024 Discontinued Arnuity Ellipta 200 MCG/ACT inhaler INHALE 1 PUFF BY MOUTH EVERY DAY AT THE SAME TIME RINSE MOUTH AFTER USING 30 each 3 025 2024 Discontinued(R eorder (will not trigger notification to Pharmacy)) Active Problems Problem Noted Date Diagnosed Date Chronic low back pain 07/03/2022 Hypertension associated with type 2 diabetes logan litus 07/03/2022 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/18/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 03/22/2020 Pulmonary hypertension 03/22/2020 Class 1 obesity 12/27/2018 Moderate persistent asthma without complication 12/27/2018 Essential hypertension 03/02/2018 Swelling of knee joint 03/02/2018 Asthma 07/18/2012 Depressive disorder 07/18/2012 Erectile dysfunction 07/18/2012 Hyperlipidemia 07/18/2012 Tubular adenoma 07/18/2012 Encounters Date Type Department Care Team Description 04/23/2025 Orders Only [facility] [address] [place] [address] Eunice Carmichael ANP 04/15/2025 Refill [facility] [address] [place] [address] Eunice Carmichael ANP Essential hypertension 04/10/2025 Telephone [facility] [address] [place] [address] Eunice Carmichael ANP May04/02/2025 Refill [facility] [address] [place] [address] Eunice Carmichael ANP 03/25/2025 Refill [facility] [address] [place] [address] Eunice Carmichael ANP 03/18/2025 Refill [facility] [address] [place] [address] Eunice Carmichael ANP Erectile dysfunction due to diseases classified elsewhere 03/11/2025 Refill [facility] [address] [place] [address] Eunice Carmichael ANP Essential hypertension 02/25/2025 Refill [facility] [address] [place] [address] Eunice Carmichael ANP Type 2 diabetes mellitus with hyperlipidemia (CMS/HCC) ([facility]/HCC) 02/05/2025 1:30 PM EDT Office Visit [facility] [address] [place] [address] Eunice Carmichael ANP Hypertension associated with type 2 diabetes mellitus ([facility]/HCC) (Primary Dx); Dietary counseling; Exercise counseling; Irregular heart rhythm 02/05/2025 Travel 01/29/2025 Refill [facility] [address] [place] [address] Eunice Carmichael ANP Moderate persistent asthma without complication 01/26/2025 Refill [facility] [address] [place] [address] Eunice Carmichael ANP Essential hypertension 01/23/2025 Refill [facility] [address] [place] [address] Eunice Carmichael ANP Moderate persistent asthma without complication 01/22/2025 Refill [facility] [address] [place] [address] Eunice Carmichael ANP Moderate persistent asthma without complication from Last 3 Months Immunizations Immunization Administration Dates Next Due Hep B, adult 03/13/2024,10/11/2023 Influenza High-dose Quadrivalent Preservative Fr ee 05/11/2022 Influenza Injectable Quadriv alant Preservative Free IIV4 MDCK 05/15/2018 Influenza Quadrivalent Adjuvanted 05/09/2023, Influenza injectable quadriv alent IIV4 with preservative 05/14/2016,06/10/2015 Influenza injectable quadrivalent preservative f ree 05/30/2017 Influenza, High Dose Seasonal, Preservative Free 04/13/2019 Influenza, IIV3, injectable 06/14/2008 Influenza, Split (incl. purified surface antigen ) 07/18/2012 Pneumococcal Conjugate PCV 13 07/04/2019, 015 Pneumococcal Conjugate PCV 20 10/09/2024 Pneumococcal Polysaccharide PPSV23 05/16/2022 TD (adult), 2 Lf tetanus tox oid, preservative free, adsorbed 10/29/2004 Tdap 06/10/2015 Zoster, Recombinant 07/22/2022,05/18/2022 Zoster, live 06/10/2015 Social History Tobacco Use Types Packs/Day Years Used Date Smoking Tobacco: Former Cigarettes Smokeless Tobacco: Never Tobacco Cessation:Counseling Given: Not Answered Alcohol Use Standard Drinks/Week Comments Not Currently [...] Orientation Straight 06/22/2024 10 :06 AM EST Last Filed Vital Signs Vital Sign Reading Time Taken Comments Blood Pressure 142/76 02/05/2025 1:57 PM EDT Pulse 62 02/05/2025 1:55 PM EDT Temperature 36.4 C (97.5 F) 10/09/2024 3:09 PM EST Respiratory Rate 16 02/05/2025 1:55 PM EDT Oxygen Saturation 96% 10/09/2024 3:09 PM EST Inhaled Oxygen Concentration - - Weight 98.9 kg (218 lb) 02/05/2025 1:55 PM EDT Height 175.3 cm (5' 9 ) 02/05/2025 1:55 PM EDT Body Mass Index 32.19 02/05/2025 1:55 PM EDT Plan of Treatment Upcoming Encounters Date Type Department Care Team (Late st Contact Info) Description 06/18/2025 11:15 AM EST Office Visit [facility] [address] [place], [place] [phone] Eunice Carmichael ANP [address] [place], [place] [phone] Health Maintenance Due Date Last Done Comments CT Colonography 1954 FIT DNA/Cologuard 1954 FIT 1954 FOBT 1954 Sigmoidoscopy 1954 Diabetes: Foot Exam 1964 Eye Exam 1964 RSV Patients and Patients Aged 60 years or older (1 - Risk 60-74 years 1-dose series) 2014 Hepatitis B Vaccines (3 of 3 - 19+ 3-dose series) 05/08/2024 03/13/2024, 10/11/2023 COVID-19 Vaccine ( season) 2025 05/11/2022, 12/08/2021, 06/16/2021, Additional history exists Influenza Vaccine (#1) 2025 3, 05/11/2022, 06/02/2021, Additional history exists Diabetes: Hemoglobin A1C 05/08/2025 025, 10/09/2024, 06/22/2024, Additional history exists DTaP/Tdap/Td Vaccines (2 - Td or Tdap) 06/10/2025 06/10/2015, 10/29/2004 Diabetes: Urine Protein Screening 06/22/2025 06/22/2024, 11/17/2021, 04/09/2020 Lipid Panel 06/22/2025 06/22/2024, 11/2021, 02/21/2021 Depression Screening 10/09/2025 10/09/2024, 10/09/19 SDOH Screening 10/09/2025 10/09/2024 Alcohol/Substance Use Screening 02/05/2026 02/05/2025 Tobacco Screening 02/05/2026 02/05/2025 Colonoscopy 11/25/2026 11/25/2021 Colorectal Cancer Screening 11/25/2026 Hepatitis C Screening Completed 11/17/2021 Zoster Vaccines Completed 07/22/2022, 10/2021, 06/10/2015 Pneumococcal Vaccine: 50+ Years Completed 10/09/2024, 05/16/2022, 07/04/2019, Additional history exists HIB Vaccines Aged Out No longer eligi ble based on patient's age to complete this topic HPV Vaccines Aged Out No longer eligi ble based on patient's age to complete this topic Hepatitis A Vaccines Aged Out No long er eligible based on patient's age to complete this topic IPV Vaccines Aged Out No longer eligi ble based on patient's age to complete this topic Meningococcal B Vaccine Aged Out No l onger eligible based on patient's age to complete this topic Meningococcal Vaccine Aged Out No leonora rob eligible based on patient's age to complete this topic RSV under 20 months Aged Out No longe r eligible based on patient's age to complete this topic Rotavirus Vaccines Aged Out No longer eligible based on patient's age to complete this topic Procedures Procedure Name Priority Date/Time Associated Diagnosis Comments POCT GLYCATED HEMOGLOBIN, TOTAL Routine 02/05/2025 4:16 PM EDT Hypertension associated with type 2 diabetes mellitus (CMS/HCC) POCT GLUCOSE Routine 02/05/2025 1:57 PM EDT Hypertension associated with type 2 diabetes mellitus (CMS/HCC) ALBUMIN, RANDOM URINE W/CREATININE Routine 06/22/2024 11:11 AM EST Hypertension associated with type 2 diabetes mellitus (CMS/HCC) (CMS/HCC) LIPID PANEL, STANDARD Routine 06/22/2024 11:11 AM EST Hypertension associated with type 2 diabetes mellitus (CMS/HCC) (CMS/HCC) HM COLONOSCOPY Routine 11/25/2021 ZZZ HISTORICAL HEPATITIS C AB W/REFL TO HCV RNA, QN, PCR Routine 11/17/2021 8:09 AM EDT from Last 3 Months or Most Recently Relevant to Health Maintenance Results * (ABNORMAL) POCT HGB A1C (02/05/2025 4:16 PM EDT) Hemoglobin A1C 6.8(A) 4.0 - 6.0 % QC Media Lot # [id number] Lot# Expiration Date Blood 02/05/2025 4:16 PM EDT us Eunice RAMOS POINT OF CARE TEST ENTER/EDIT OR DERABLES Final Result * POCT Glucose (02/05/2025 1:57 PM EDT) Glucose Blood, POC 119 60 - 200 mg/dL QC Sviral Lot # [id number] Lot# Expiration Date Blood Capillary blood specimen / Unknown 02/05/2025 1:57 PM EDT us Eunice RAMOS POINT OF CARE TEST ENTER/EDIT OR DERABLES Final Result * Albumin, Random Urine W/Creatinine (06/22/2024 11:11 AM EST) Creatinine, Urine 164.94 mg/dL [facility] Microalbumin Urine 37.0 mg/L [facility] Microalbum Creatinine Ratio Ur 22.4 <30 ug/mg cr [facility] Comment:Albumin/Creatinine R atio Reference Ranges: Normal: < 30 ug/mg creatinine Microalbuminuria: 30 - 300 ug/mg creatinineClinical Albuminuria: > 300 ug/mg creatinine Urine (Urine, Random) 06/22/2024 11:11 AM EST 06/22/2024 12:57 PM EST Eunice Carmichael ANP LAB URINE ORDERABLES Final Resul t Performing Organization Address [facility] de Phone Number [facility] [address] [place] [phone] * (ABNORMAL) Lipid Panel, Standard (06/22/2024 11:11 AM EST) Triglycerides 114 <150 mg/dL [facility] Comment:Desirable Triglyceri de: less than 150 mg/dLBorderline High Triglyceride 150-199 mg/dLHigh Triglyceride: 200-499 mg/dLVery High Triglyceride: greater than or equal to 5OO mg/dL Cholesterol 187 <200 mg/dL [facility] Comment:Desirable Cholestero l: less than 200 mg/dLBorderline High Cholesterol: 200-239 mg/dLHigh Cholesterol: greater than 239 mg/dL LDL Cholesterol Calculated 103(H) <100 mg/dL [facility] Comment:Desirable LDL: less than 100 mg/dLNear Optimal/Above Optimal LDL: 110- 129 mg/dLBorderline High LDL: 130-159 mg/dLHigh LDL: 160-189 mg/dLVery High LDL: greater than or equal to 190 mg/dL HDL Cholesterol 62 >40 mg/dL [facility] Comment:Desirable HDL: great er than 40 mg/dL Note: This HDL assay may give artificially low results in patients with liver disease. Blood Venous blood specimen / Unknown 06/22/2024 11:11 AM EST 06/22/2024 1:14 PM EST Eunice Carmichael ANP LAB BLOOD ORDERABLES Final Resul t Performing Organization Address [facility] Co de Phone Number [facility] [address] [place] [phone] * Hm Colonoscopy (11/25/2021) Colonoscopy Normal Normal Historical Provider HEALTH MAINTENANCE Final Result * HEPATITIS C AB W/REFL TO HCV RNA, QN, PCR (11/17/2021 8:09 AM EDT) HEPATITIS C ANTIBODY NON-REACT RACHID NON-REACT RACHID [facility] INDEX 0.05 <1.00 [facility] Comment: HCV antibody was non-reactive. There is no laboratory evidence of HCV infection. In most cases, no further action is required. However, if recent HCV exposure is suspected, a test for HCV RNA (test code 28231) is suggested. For additional information please refer to http://education.[employer]/faq/BVL65j6 (This link is being provided for informational/ educational purposes only.) 11/17/2021 8:09 AM EDT us Pat West NP HISTORICAL/NON ORDERABLE LABS F inal Result [facility] [address] from Last 3 Months or Most Recently Relevant to Health Maintenance Insurance [facility] MEDICARE ADVANTAGE Care Teams Globe Tester Relationship Specialty Start Date End Date Eunice Carmichael ANP [address] [place] [phone] PCP - General Family Medicine 04/07/22
== END 2025-04-24 13:51 | disposition home or self-care (01) ==
LOC: HO.RHES 13:05
PROVIDERS: PCP Nurse Practitioner Primary Care; Visit Provider Internal Medicine Rheumatology
DX: M16.0 Bilateral primary osteoarthritis of hip (principal); M88.9 Osteitis deformans of unspecified bone; Z13.820 Encounter for screening for osteoporosis
CPT/HCPCS: 99214; G2211

== ENCOUNTER → 2025-04-24 13:04 | Outpatient (BNVA) | payer MEDICARE, SELFPAY | PROVIDERS: PCP Nurse Practitioner Primary Care; Visit Provider Internal Medicine Rheumatology | DX: M16.0 Bilateral primary osteoarthritis of hip (principal); M88.9 Osteitis deformans of unspecified bone; Z13.820 Encounter for screening for osteoporosis; Z79.1 Long term (current) use of non-steroidal anti-inflammatories (NSAID) | CPT/HCPCS: 99212 ==

== ENCOUNTER 2025-04-30 07:37 | Outpatient (REF) | payer MEDICARE, SELFPAY ==
--- OUTSIDE RECORDS SUMMARY | 2025-04-30 07:41 | XMS_ITS | Encounter Summary ---
Author Organization [employer] Address [address] [facility] 7t [place] [address] Care Team Providers Care Process Designer Name Role Phone Eunice Carmichael Primary Care Provider [phone] Reason for Visit * Reason Comments Med Refill Encounter Details Date Type Department Care Team ([facility] st Contact Info) Description 01/29/2025 Refill [facility] [address] [place], [place] [phone] Eunice Carmichael ANP [address] [place] [address] Moderate persistent asthma without complication Social History [...] 06/18/2025 11:15 AM EST Office Visit [facility] [address] [place] [phone] Eunice Carmichael ANP [address] [place] [address] documented as of this encounter Visit Diagnoses Diagnosis Moderate persistent asthma without complication documented in this encounter Additional Health Concerns Assessment Noted Time PHQ-9 Depression Total Score: 0 10/09/19 25 4:12 PM EST documented as of this encounter Care Teams Process Designer Relationship Specialty Start Date End Date Eunice Carmichael ANP [address] [place] [phone] PCP - General Family Medicine 04/07/22 documented as of this encounter
--- OUTSIDE RECORDS SUMMARY | 2025-04-30 07:41 | XMS_ITS | Encounter Summary ---
Author Organization [employer] Address [address] [facility] 7t [place] [address] Care Team Providers Care Chief Jailer Name Role Phone Eunice Carmichael Primary Care Provider [phone] Reason for Visit * Reason Comments Med Refill Encounter Details Date Type Department Care Team ([facility] st Contact Info) Description 01/22/2025 Refill [facility] [address] [place], [place] [phone] Eunice Carmichael ANP [address] [place] [address] Moderate persistent asthma without complication Social History [...] Description 06/18/2025 11:15 AM EST Office Visit [facility] [address] [place] [phone] Eunice Carmichael ANP [address] [place] [address] documented as of this encounter Visit Diagnoses Diagnosis Moderate persistent asthma without complication documented in this encounter Additional Health Concerns Assessment Noted Time PHQ-9 Depression Total Score: 0 10/09/19 25 4:12 PM EST documented as of this encounter Care Teams Chief Jailer Relationship Specialty Start Date End Date Eunice Carmichael ANP [address] [place] [phone] PCP - General Family Medicine 04/07/22 documented as of this encounter
--- OUTSIDE RECORDS SUMMARY | 2025-04-30 07:41 | XMS_ITS | Encounter Summary ---
Author Organization [employer] Address [address] [facility] 7t [place] [address] Care Team Providers Care Assistant Art Director Name Role Phone Eunice Carmichael Primary Care Provider Reason for Visit * Reason Comments Med Refill Encounter Details Date Type Department Care Team ([facility] st Contact Info) Description 08/14/2024 Refill [facility] [address] [place], [place] [phone] Eunice Carmichael ANP [address] [place] [address] Erectile dysfunction due to diseases classified elsewhere [...] Description 06/18/2025 11:15 AM EST Office Visit [facility] [address] [place] [address] Eunice Carmichael ANP [address] [place] [address] documented as of this encounter Visit Diagnoses Diagnosis Erectile dysfunction due to diseases classified elsewhere documented in this encounter Care Teams Assistant Art Director Relationship Specialty Start Date End Date Eunice Carmichael ANP [address] [place] [phone] PCP - General Family Medicine 04/07/22 documented as of this encounter
--- OUTSIDE RECORDS SUMMARY | 2025-04-30 07:41 | XMS_ITS | Patient Health Record ---
Author Organization [facility] Address [address] [place] [address] Care Team Providers Care Ends Down Checker Name Role Phone Colt Antonio MD, Christiano Primary Care Provide r Javier Jose Unavailable [phone] Reason For Referral No Information Medications Medication [...] Problem Long-term current use of drug therapy (948423528) Encounter for long-term (current) use of other medications (V58.69) Active confirmed Problem Colon cancer screening (916307310) Colon cancer screening (V76.51) Active confirmed Problem History of polyp of colon (situation) (892679233) History of colon polyps (V12.72) Active confirmed Plan Of Treatment Future Test Test Name Order Date COLONOSCOPY 12/22/2012 Insurance Providers Payer Name Payer Address Payer Phone Subscriber Number Group Number Insured Name Patient Relationship to Insured Coverage Start Date Coverage End Date [facility] [employer] [address] [place] [address] [id number] [id number] [place] Self - patient is the insured MEDICA[employer] OF [employer] [address] [place] [address] [id number] ANAND [place] Self - patient is the insured Medical (General) History Medical History History ICD Code HTN Denies NE,DM,CVA,renal disease Asthma Hyperlipidemia Surgical History Surgery Date(Month/Year) Vasectomy
--- OUTSIDE RECORDS SUMMARY | 2025-04-30 07:41 | XMS_ITS | Clinical Summary ---
Author Organization [employer] Address [address] [facility] 7t [place] [address] Care Team Providers Care Load Haul Dump Operator Name Role Phone Eunice Carmichael RACHEL Primary Care Provider [phone] Allergies Active Allergy Reactions Criticality Noted Date [...] HOURS 4 g 5 024 2024 Discontinued lisinopril 40 MG tabletIndications [...] Department Care Team Description 04/23/2025 Orders Only [facility] [address] [place] [address] Eunice Carmichael ANP 04/15/2025 Refill [facility] [address] [place] [address] Eunice Carmichael ANP Essential hypertension 04/10/2025 Telephone [facility] [address] [place] [address] Eunice Carmichael ANP May04/02/2025 Refill [facility] [address] [place] [address] Eunice Carmichael ANP 03/25/2025 Refill [facility] [address] [place] [address] Eunice Carmichael ANP 03/18/2025 Refill [facility] [address] [place] [address] Eunice Carmichael ANP Erectile dysfunction due to diseases classified elsewhere 03/11/2025 Refill [facility] [address] [place] [address] Eunice Carmichael ANP Essential hypertension 02/25/2025 Refill [facility] [address] [place] [address] Eunice Carmichael ANP Type 2 diabetes mellitus with hyperlipidemia (CMS/HCC) (CMS/HCC) 02/05/2025 1:30 PM EDT Office Visit [facility] [address] [place] [address] Eunice Carmichael ANP Hypertension associated with type 2 diabetes mellitus (CMS/HCC) (Primary Dx); Dietary counseling; Exercise counseling; Irregular heart rhythm 02/05/2025 Travel 01/29/2025 Refill [facility] [address] [place] [address] Eunice Carmichael ANP Moderate persistent asthma without [...] Description 06/18/2025 11:15 AM EST Office Visit [facility] [address] [place] [address] Eunice Carmichael, ANP [address] [place] [address] Health Maintenance Due Date Last Done Comments [...] Additional history exists Influenza Vaccine (#1) 2025 , 05/11/2022, 06/02/2021, Additional history exists Diabetes: Hemoglobin A1C 05/08/2025 025, 10/09/2024, 06/22/2024, Additional history exists DTaP/Tdap/Td Vaccines (2 - Td or Tdap) 06/10/2025 06/10/2015, 10/29/2004 Diabetes: Urine Protein Screening 06/22/2025 06/22/2024, 11/17/2021, 04/09/2020 Lipid Panel 06/22/2025 06/22/2024, 04/0 11/2021, 02/21/2021 Depression Screening 10/09/2025 10/09/2024, 10/09/19 SDOH Screening 10/09/2025 10/09/2024 Alcohol/Substance Use Screening 02/05/2026 02/05/2025 Tobacco Screening 02/05/2026 02/05/2025 Colonoscopy 11/25/2026 11/25/2021 Colorectal Cancer Screening 11/25/2026 Hepatitis C Screening Completed 11/17/2021 Zoster Vaccines Completed 07/22/2022, 100 10/2021, 06/10/2015 Pneumococcal Vaccine: 50+ Years Completed [...] Media Lot # [id number] Lot# Expiration Date , Blood 02/05/2025 4:16 PM EDT us Eunice Carmichael ANP POINT OF CARE TEST ENTER/EDIT OR DERABLES Final Result * POCT Glucose (02/05/2025 1:57 PM EDT) Glucose Blood, POC 119 60 - 200 mg/dL QC Media Lot # [id number] Lot# Expiration Date Blood Capillary blood specimen / Unknown 02/05/2025 1:57 PM EDT us Eunice Carmichael ANP POINT OF CARE TEST ENTER/EDIT OR DERABLES Final Result * Albumin, Random Urine W/Creatinine (06/22/2024 11:11 AM EST) Creatinine, Urine 164.94 mg/dL [facility] Microalbumin Urine 37.0 mg/L [facility] Microalbum Creatinine Ratio Ur 22.4 <30 ug/mg cr [facility] Comment:Albumin/Creatinine R atio Reference Ranges: Normal: < 30 ug/mg creatinine Microalbuminuria: 30 - 300 ug/mg creatinineClinical Albuminuria: > 300 ug/mg creatinine Urine (Urine, Random) 06/22/2024 11:11 AM EST 06/22/2024 12:57 PM EST us Eunice Carmichael ANP LAB URINE ORDERABLES Final Resul t [facility] [address] [place] [phone] * (ABNORMAL) Lipid Panel, Standard (06/22/2024 11:11 AM EST) Triglycerides 114 <150 mg/dL [facility] Comment:Desirable Triglyceri de: less than 150 mg/dLBorderline High Triglyceride 150-199 mg/dLHigh Triglyceride: 200-499 mg/dLVery High Triglyceride: greater than or equal to 5OO mg/dL Cholesterol 187 <200 mg/dL [facility] Comment:Desirable Cholestero l: less than 200 mg/dLBorderline High Cholesterol: 200-239 mg/dLHigh Cholesterol: greater than 239 mg/dL LDL Cholesterol Calculated 103(H) <100 mg/dL [facility] Comment:Desirable LDL: less than 100 mg/dLNear Optimal/Above Optimal LDL: 110- 129 mg/dLBorderline High LDL: 130-159 mg/dLHigh LDL: 160-189 mg/dLVery High LDL: greater than or equal to 190 mg/dL HDL Cholesterol 62 >40 mg/dL [facility] Comment:Desirable HDL: great er than 40 mg/dL Note: This HDL assay may give artificially low results in patients with liver disease. Blood Venous blood specimen / Unknown 06/22/2024 11:11 AM EST 06/22/2024 1:14 PM EST [facility] BLOOD ORDERABLES Final Resul t [facility] [address] [place] [address] [phone] * Hm Colonoscopy (11/25/2021) Colonoscopy Normal Normal Historical Provider HEALTH MAINTENANCE Final Result * HEPATITIS C AB W/REFL TO HCV RNA, QN, PCR (11/17/2021 8:09 AM EDT) HEPATITIS C ANTIBODY NON-REACT [facility] NON-REACT [facility] INDEX 0.05 <1.00 [facility] Comment: HCV antibody was non-reactive. There is no laboratory evidence of HCV infection. In most cases, no further action is required. However, if recent HCV exposure is suspected, a test for HCV RNA (test code 28814) is suggested. For additional information please refer to http://[email or web address]/DRB14d4 (This link is being provided for informational/ educational purposes only.) 11/17/2021 8:09 AM EDT us Pat West NP HISTORICAL/NON ORDERABLE LABS F inal Result [facility] [address] [place] [address], from Last 3 Months or Most Recently Relevant to Health Maintenance Insurance [employer] [facility] MEDICARE ADVANTAGE Care Teams Load Haul Dump Operator Relationship Specialty Start Date End Date Eunice Carmichael ANP [address] [place] [id number] PCP - General Family Medicine 04/07/22
--- OUTSIDE RECORDS SUMMARY | 2025-04-30 07:41 | XMS_ITS | Encounter Summary ---
Author Organization [employer] Address [address] [facility] [address] [place] [address] Care Team Providers Care Translator Deaf Name Role Phone Eunice Carmichael Primary Care Provider [phone] Reason for Visit * Reason Comments Med Refill Encounter Details Date Type Department Care Team ([facility] st Contact Info) Description 01/23/2025 Refill [facility] [address] [place], [place] [phone] Eunice Carmichael ANP [address] [place] [address] Moderate persistent asthma without complication Social History [...] Description 06/18/2025 11:15 AM EST Office Visit [facility] [address] [place] [phone] Eunice Carmichael ANP [address] [place] [address] documented as of this encounter Visit Diagnoses Diagnosis Moderate persistent asthma without complication documented in this encounter Additional Health Concerns Assessment Noted Time PHQ-9 Depression Total Score: 0 10/09/19 25 4:12 PM EST documented as of this encounter Care Teams Translator Deaf Relationship Specialty Start Date End Date Eunice Carmichael ANP [address] [place] [phone] PCP - General Family Medicine 04/07/22 documented as of this encounter
[2025-04-30 08:57] LABS: Alanine Aminotransferase 14 U/L (0-40); Albumin Level 4.2 g/dL (3.5-5.0); Alkaline Phosphatase 87 U/L (39-117); Aspartate Amino Transferase 18 U/L (5-37); Calcium 8.9 mg/dL (8.4-10.2); Estimated Glomerular Filt Rate > 60
[2025-05-04 17:19] LABS: Collagen Type I C-Telopeptide 186 pg/mL (see note)
== END 2025-04-30 07:38 | disposition home or self-care (01) ==
LOC: HO.LAB 07:37
PROVIDERS: PCP Nurse Practitioner Primary Care; Visit Provider Internal Medicine Rheumatology
DX: M88.9 Osteitis deformans of unspecified bone (principal); Z79.1 Long term (current) use of non-steroidal anti-inflammatories (NSAID)
CPT/HCPCS: 36415; 82040; 82306; 82310; 82523; 82565; 84075; 84100; 84450; 84460

== ENCOUNTER 2025-06-04 08:50 | Outpatient (REF) | payer MEDICARE, SELFPAY ==
--- NOTE | ~2025-06-04 | MM_ITS ---
EXAMINATION: DXA BONE DENSITY EXTREMITY HISTORY: M88.9 - Osteitis deformans of unspecified bone TECHNIQUE: Qoture Dual energy absorptiometry (DEXA) of the lumbar spine, total left hip, and femoral neck was performed. COMPARISON: There are no prior studies for comparison. FINDINGS: The bone mineral density of the lumbar spine is 1.185 g/cm2, corresponding to a T-score of -0.1, and a Z-score of -0.9. This is indicative of normal bone mineral density. The bone mineral density of the left total hip is 1.134 g/cm2, corresponding to a T-score of 0.2, and a Z-score of -0.4. This is indicative of normal bone mineral density. The bone mineral density of the left femoral neck is 1.043 g/cm2, corresponding to a T-score of -0.2, and a Z-score of -0.4. This is indicative of normal bone mineral density. MM/XR DEXA appendicular skeleton IMPRESSION: Based on bone mineral density, and according to World Health Organization (WHO) criteria, the diagnosis is consistent with normal bone mineral density. Statistically, 68% of repeat scans fall within 1 SD (+/- 0.010 g/cm2 for AP spine L1-L4) and 1 SD (+/- 0.012 g/cm2 for femur total) FRAX is a trademark of the [employer] Metabolic Bone Disease, a World Health Organization (WHO) Collaborating Center. Electronically signed by: Javier Oneill MD 06/05/2025 03:04 PM EDT
--- OUTSIDE RECORDS SUMMARY | 2025-06-04 09:53 | XMS_ITS | Encounter Summary ---
Author Organization [employer] Address [address] [facility] 7t [place] [address] Care Team Providers Care Community Product Specialist Name Role Phone Eunice Carmichael Primary Care Provider [phone] Reason for Visit * Reason Comments Med Refill Encounter Details Date Type Department Care Team ([facility] st Contact Info) Description 08/14/2024 Refill [facility] [address] [place], [place] [phone] Eunice Carmichael ANP [address] [place] [address] Erectile dysfunction due to diseases classified elsewhere [...] Description 06/18/2025 11:15 AM EST Office Visit [facility] [address] [place] [address] Eunice Carmichael ANP [address] [place] [address] documented as of this encounter Visit Diagnoses Diagnosis Erectile dysfunction due to diseases classified elsewhere documented in this encounter Care Teams Community Product Specialist Relationship Specialty Start Date End Date Eunice Carmichael ANP [address] [place] [phone] PCP - General Family Medicine 04/07/22 documented as of this encounter
--- OUTSIDE RECORDS SUMMARY | 2025-06-04 09:54 | XMS_ITS | Encounter Summary ---
Author Organization [employer] Address [address] [facility] [address] [place] [address] Care Team Providers Care Marble Cutter Name Role Phone Eunice Carmichael Primary Care Provider [phone] Reason for Visit * Reason Comments Med Refill Encounter Details Date Type Department Care Team ([facility] st Contact Info) Description 01/23/2025 Refill [facility] [address] [place], [place] [phone] Eunice Carmichael ANP [address] [place] [address] Moderate persistent asthma without complication Social History [...] Description 06/18/2025 11:15 AM EST Office Visit [facility] [address] [place] [phone] Eunice Carmichael ANP [address] [place] [address] documented as of this encounter Visit Diagnoses Diagnosis Moderate persistent asthma without complication documented in this encounter Additional Health Concerns Assessment Noted Time PHQ-9 Depression Total Score: 0 10/09/19 25 4:12 PM EST documented as of this encounter Care Teams Marble Cutter Relationship Specialty Start Date End Date Eunice Carmichael ANP [address] [place] [phone] PCP - General Family Medicine 04/07/22 documented as of this encounter
--- OUTSIDE RECORDS SUMMARY | 2025-06-04 09:54 | XMS_ITS | Clinical Summary ---
Author Organization [employer] Address [address] [facility] 7t [place] [address] Care Team Providers Care Video Photographer Name Role Phone Eunice Carmichael RACHEL Primary Care Provider [phone] Allergies Active Allergy Reactions Criticality Noted Date Comments Chlorthalidone High 11/20/2016 Other reaction(s): lightheadness, hot flashes, weak Hydrochlorothiazide High 09/23/2016 Other reaction(s): Muscle Cramping Metformin Dizziness 05/27/2023 Simvastatin 11/28/2013 Other reaction(s): muscle and body pains, cramps Medications acetaminophen (Tylenol) 500 MG tablet 11/13/19 16 Active glucose blood (FREESTYLE LITE) test strip Apply 1 strip topically every 8 (eight) hours. 10/18/19 20 Active triamcinolone (Kenalog) 0.1 % creamIndications: Skin pruritus Apply topically 2 times daily. 45 g 1 05/15/20 24 Active predniSONE (Deltasone) 20 MG tabletIndications :Right leg pain,Low back pain radiating to right leg Take 2 tabs once daily for 5 days, take with food 10 tablet 06/22/20 24 Active tiZANidine (Zanaflex) 2 MG tabletIndications :Low back pain radiating to right leg 1-2 tabs at bedtime as needed for muscle pain 20 tablet 06/22/20 24 Active naproxen (Naprosyn) 500 MG tabletIndications :Low back pain radiating to right leg Take 1 tab twice daily for 5-7 days, then take as needed up to twice daily; take with food 60 tablet 06/22/20 24 Active cholecalciferol VITAMIN D (Vitamin D-3) 50 MCG (2000 UT) tabletIndications :Vitamin D deficiency TAKE 1 TABLET BY MOUTH EVERY MORNING 90 tablet 1 12/27/19 25 Active Januvia 25 MG tabletIndications :Type 2 diabetes mellitus with hyperlipidemia (HCC) TAKE 1 TABLET BY MOUTH EVERY DAY IN THE MORNING 30 tablet 5 02/27/20 25 Active pravastatin (Pravachol) 40 MG tabletIndications :Hypertension associated with type 2 diabetes mellitus (HCC) Take 1 tablet (40 mg) by mouth Once per day. 90 tablet 1 03/07/20 25 Active metoprolol succinate XL (Toprol-XL) 25 MG 24 hr tablet TAKE 1 TABLET BY MOUTH EVERY MORNING 90 tablet 1 03/12/20 25 Active metoprolol succinate XL (Toprol-XL) 50 MG 24 hr tabletIndications :Essential hypertension TAKE 1 TABLET BY MOUTH DAILY 90 tablet 1 03/12/20 25 Active Viagra 100 MG tabletIndications :Erectile dysfunction due to diseases classified elsewhere TAKE 1 TABLET 1 HOUR BEFORE SEXUAL RELATIONS ONCE DAILY NEEDED. 20 tablet 2 03/19/20 25 Active montelukast (Singulair) 10 MG tablet TAKE 1 TABLET BY MOUTH EVERY DAY IN THE EVENING 90 tablet 3 03/26/20 25 Active Combivent Respimat 20-100 MCG/ACT inhaler INHALE 1 PUFF 4 TIMES A DAY, MAY TAKE ADDITIONAL PUFFS NEEDED. (MAX OF 6 PUFFS PER DAY) 4 g 5 04/02/20 25 Active Arnuity Ellipta 200 MCG/ACT inhaler INHALE 1 PUFF BY MOUTH EVERY DAY AT THE SAME TIME RINSE MOUTH AFTER USING 30 each 3 04/02/20 25 Active lisinopril 40 MG tabletIndications :Essential hypertension TAKE 1 TABLET BY MOUTH EVERY MORNING 90 tablet 1 04/17/20 25 Active NIFEdipine XL (Procardia XL) 30 MG 24 hr tabletIndications :Essential hypertension TAKE 1 TABLET BY MOUTH EVERY DAY. 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 03/22/2020 Pulmonary hypertension ([facility]/HCC) 03/22/2020 Class 1 obesity 12/27/2018 Moderate persistent asthma without complication 12/27/2018 Essential hypertension 03/02/2018 Swelling of knee joint 03/02/2018 Asthma 07/18/2012 Depressive disorder 07/18/2012 Erectile dysfunction 07/18/2012 Hyperlipidemia 07/18/2012 Tubular adenoma 07/18/2012 Encounters Date Type Department Care Team Description 05/06/2025 Refill [facility] [address] [place] [address] Eunice Carmichael ANP 05/04/2025 Refill [facility] [address] [place] [address] Eunice Carmichael ANP Essential hypertension 04/30/2025 Orders Only GENERIC EXTERNAL DATA DEPARTMENT Provider, Generic External Data 04/23/2025 Orders Only [facility] [address] [place] [address] Eunice Carmichael ANP 04/15/2025 Refill [facility] [address] [place] [address] Eunice Carmichael ANP Essential hypertension 04/10/2025 Telephone [facility] [address] [place] [address] Eunice Carmichael ANP May04/02/2025 Refill [facility] [address] [place] [address] Eunice Carmichael ANP 03/25/2025 Refill [facility] [address] [place] [address] Eunice Carmichael ANP 03/18/2025 Refill [facility] [address] [place] [address] Eunice Carmichael ANP Erectile dysfunction due to diseases classified elsewhere 03/11/2025 Refill [facility] [address] [place] [address] Eunice Carmichael ANP Essential hypertension from Last 3 Months Immunizations Immunization Administration [...] the past 12 months, has t he Finario, gas, oil or water [employer] threatened to shut off services in your [...] Description 06/18/2025 11:15 AM EST Office Visit [facility] [address] [place] [address] Eunice Carmichael, ANP [address] [place] [address] Health Maintenance Due Date Last Done Comments [...] Procedure Name Priority Date/Time Associated Diagnosis Comments COLLAGEN TYPE I C-TELOPEPTIDE (CTX) Routine 04/30/2025 8:04 AM EDT ALKALINE PHOSPHATASE, BONE SPECIFIC Routine 04/30/2025 8:04 AM EDT VITAMIN D,25-OH,TOTAL,IA Routine 04/30/2025 8:04 AM EDT ALKALINE PHOSPHATASE Routine 04/30/2025 8:04 AM EDT ALBUMIN Routine 04/30/2025 8:04 AM EDT ALT Routine 04/30/2025 8:04 AM EDT AST Routine 04/30/2025 8:04 AM EDT PHOSPHATE ( PHOSPHORUS) Routine 04/30/2025 8:04 AM EDT CALCIUM Routine 04/30/2025 8:04 AM EDT CREATININE, SERUM Routine 04/30/2025 8:0 4 AM EDT POCT GLYCATED HEMOGLOBIN, TOTAL Routine 02/05/2025 4:16 [...] Recently Relevant to Health Maintenance Results * Collagen Type I C-Telopeptide (CTx) (04/30/2025 8:04 AM EDT) C-Telopeptide (CTx) 186 see note pg/mL [facility] Comment: Unable to flag abnormal result(s), please refer to reference range(s) below:Reference Range, Males: <5 years: Not Established 5-9 years: 574-1849 pg/mL 10-13 years: 519-2415 pg/mL 14-17 years: 435-2924 pg/mL 18-29 years: 87-1200 pg/mL 30-39 years: 70-780 pg/mL 40-49 years: 60-700 pg/mL 50-68 years: 87-345 pg/mL >68 years: Not EstablishedNo reference range is provided for postmenopausal womenbecause of the increased rate of bone turnoverpost-menopause. It is recommended that results forpostmenopausal women be compared to the premenopausalreference range as this will give a better indicationof their rate of bone loss.For additional information, please refer tohttps://education.[employer]/faq/ALF495(This link is being provided for informational/educational purposes only.)THIS TEST WAS PERFORMED AT:[employer] [id number] [place] [address]UCNMHRMGUI BLISS MD,PHD 04/30/2025 8:04 AM EDT 04/30/2025 8:04 AM EDT us Generic External Data Provider LAB BLOOD ORDERAB LES Final Result [facility] [address] [place] [phone] * Vitamin D, 25-Hydroxy, Total, Immunoassay (04/30/2025 8:04 AM EDT) Pathologist [facility] Vitamin D 25-OH Total 49.3 >30 ng/mL [facility] Comment: Health Based Reference Values*< 20 ng/mL Xolqpmsbi38-43 ng/mL Insufficient> 30 ng/mL Sufficient*Katty KELLY. N Engl J Med. 2007;357:266-280There is no well-established upper level of normal vitamin Dlevels. Some laboratories use 50 ng/mL as an upper limit ofnormal. However, toxicity is patient-dependent and may occurat any level. Careful correlation with the patient'spresentation is necessary and, if there is concern forvitamin D toxicity, treatment should be consideredirrespective of the serum level.Care must be taken in interpreting Vitamin D results fromdifferent laboratories and methodologies. Published datademonstrated that results from patients undergoinghemodialysis may show a negative bias when tested withvarious automated 25-OH vitamin D assays when compared toLC-MS/MS.When testing samples from patients whose predominant form ofVitamin D is Vitamin D2, such as patients receiving VitaminD2 supplementation, results that are subtherapeutic shouldbe confirmed with another method such as LC-MS/MS. 04/30/2025 8:04 AM EDT 04/30/2025 8:04 AM EDT us Generic External Data Provider LAB BLOOD ORDERAB LES Final Result Performing Organization Address [facility] Co de Phone Number [facility] [address] [place] [phone] * Creatinine, Serum (04/30/2025 8:04 AM EDT) Creatinine, Serum 0.95 0.5 - 1.4 mg/dL [facility] Estimated Glomerular Filt Rate >60 [facility] Comment:Chronic Kidney Disea se: Estimated GFR < 60 mL/min/1.76r7Awpown Kidney Disease: Estimated GFR < 15 mL/min/1.73m2 04/30/2025 8:04 AM EDT 04/30/2025 8:04 AM EDT us Generic External Data Provider LAB BLOOD ORDERAB LES Final Result Performing Organization Address City/[facility] Co de Phone Number [facility] [address] [place] [address] [phone] * Alkaline Phosphatase, Bone Specific (04/30/2025 8:04 AM EDT) Alkaline Phosphatase, Bone Specific 9.6 see note mcg/L [facility] Comment:Unable to flag abnor mal result(s), please refer to reference range(s) below:Reference Ranges for Alkaline Phosphatase (mcg/L): Age Females Males 0 - 1 month Not Established Not Established 2 - 24 months 25.4-124.0 25.4-124.025 months - 5 years Not Established Not Established 6 - 9 years 41.0-134.6 41.0-134.6 10 - 13 years 24.2-154.2 43.8-177.4 14 - 17 years 10.5- 75.2 13.7-128.0 18 - 29 years 4.7- 17.8 8.4- 29.3 30 - 39 years 5.3- 19.5 7.7- 21.3 40 - 49 years 5.0- 18.8 7.0- 18.3 50 - 68 years 7.6- 14.9 50 - 76 years 5.6- 29.0 Premenopausal 35 - 45 years 5.0- 18.2Pediatric data from Int J Biol Markers (1995) 11:159-164THIS TEST WAS PERFORMED AT:[employer] [id number] [place] [address]OATUIAKGUI BLISS MD,PHD 04/30/2025 8:04 AM EDT 04/30/2025 8:04 AM EDT us Generic External Data Provider LAB BLOOD ORDERAB LES Final Result [facility] [address] [place] [address] [phone] * ALT (04/30/2025 8:04 AM EDT) Alanine Aminotransferase 14 0 - 40 U/L [facility] 04/30/2025 8:04 AM EDT 04/30/2025 8:04 AM EDT us Generic External Data Provider LAB BLOOD ORDERAB LES Final Result Performing Organization Address [facility] de Phone Number [facility] [address] [place] [phone] * AST (04/30/2025 8:04 AM EDT) Aspartate Amino Transferase 18 5 - 37 U/L [facility] 04/30/2025 8:04 AM EDT 04/30/2025 8:04 AM EDT us Generic External Data Provider LAB BLOOD ORDERAB LES Final Result Performing Organization Address [facility] Phone Number [facility] [address] [place] [phone] * Phosphate (As Phosphorus) (04/30/2025 8:04 AM EDT) Phosphorus 3.1 2.7 - 4.5 mg/dL [facility] 04/30/2025 8:04 AM EDT 04/30/2025 8:04 AM EDT us Generic External Data Provider LAB BLOOD ORDERAB LES Final Result Performing Organization Address [facility] de Phone Number [facility] [address] [place] [phone] * Alkaline Phosphatase (04/30/2025 8:04 AM EDT) Alkaline Phosphatase 87 39 - 117 U/L [facility] 04/30/2025 8:04 AM EDT 04/30/2025 8:04 AM EDT us Generic External Data Provider LAB BLOOD ORDERAB LES Final Result Performing Organization Address [facility] de Phone Number [facility] [address] [place] [phone] * Calcium (04/30/2025 8:04 AM EDT) Calcium 8.9 8.4 - 10.2 mg/dL [facility] 04/30/2025 8:04 AM EDT 04/30/2025 8:04 AM EDT Generic External Data Provider LAB BLOOD ORDERAB LES Final Result Performing Organization Address City/[facility]/ZIP Co de Phone Number [facility] [address] [place] [phone] * Albumin (04/30/2025 8:04 AM EDT) Albumin Level 4.2 3.5 - 5.0 g/dL [facility] 04/30/2025 8:04 AM EDT 04/30/2025 8:04 AM EDT Generic External Data Provider LAB BLOOD ORDERAB LES Final Result Performing Organization Address City/[facility]/ZIP Co de Phone Number [facility] [address] [place] [phone] * (ABNORMAL) POCT HGB A1C (02/05/2025 4:16 PM EDT) Hemoglobin A1C 6.8(A) 4.0 - 6.0 % QC Media Lot # [id number] Lot# Expiration Date [id number] Blood 02/05/2025 4:16 PM EDT us Eunice Carmichael [facility] POINT OF CARE TEST ENTER/EDIT OR DERABLES Final Result * Albumin, Random Urine W/Creatinine (06/22/2024 11:11 AM EST) Creatinine, Urine 164.94 mg/dL [facility] Microalbumin Urine 37.0 mg/L H [facility] Microalbum Creatinine Ratio Ur 22.4 <30 ug/mg cr [facility] Comment:Albumin/Creatinine R atio Reference Ranges: Normal: < 30 ug/mg creatinine Microalbuminuria: 30 - 300 ug/mg creatinineClinical Albuminuria: > 300 ug/mg creatinine Urine (Urine, Random) 06/22/2024 11:11 AM EST 06/22/2024 12:57 PM EST Eunice Carmichael ANP LAB URINE ORDERABLES Final Resul t Performing Organization Address [facility] de Phone Number [facility] [address] [place] [phone] * (ABNORMAL) Lipid Panel, Standard (06/22/2024 11:11 AM EST) Triglycerides 114 <150 mg/dL [facility] Comment:Desirable Triglyceri de: less than 150 mg/dLBorderline High Triglyceride 150-199 mg/dLHigh Triglyceride: 200-499 mg/dLVery High Triglyceride: greater than or equal to 5OO mg/dL Cholesterol 187 <200 mg/dL [facility] Comment:Desirable Cholestero l: less than 200 mg/dLBorderline High Cholesterol: 200-239 mg/dLHigh Cholesterol: greater than 239 mg/dL LDL Cholesterol Calculated 103(H) <100 mg/dL [facility] Comment:Desirable LDL: less than 100 mg/dLNear Optimal/Above Optimal LDL: 110- 129 mg/dLBorderline High LDL: 130-159 mg/dLHigh LDL: 160-189 mg/dLVery High LDL: greater than or equal to 190 mg/dL HDL Cholesterol 62 >40 mg/dL [facility] Comment:Desirable HDL: great er than 40 mg/dL Note: This HDL assay may give artificially low results in patients with liver disease. Blood Venous blood specimen / Unknown 06/22/2024 11:11 AM EST 06/22/2024 1:14 PM EST us Eunice Carmichael ANP LAB BLOOD ORDERABLES Final Resul t Performing Organization Address City/[facility] Co de Phone Number [facility] [address] [place] [address] [phone] * Colonoscopy (11/25/2021) Colonoscopy Normal Normal Historical Provider MD HEALTH MAINTENANCE Final Result * HEPATITIS C [...] a test for HCV RNA (test code 50737) is suggested. For additional information please refer to http://[employer]/faq/XBP47p5 (This link is being provided for informational/ educational purposes only.) 11/17/2021 8:09 AM EDT Pat West NP HISTORICAL/NON ORDERABLE LABS F inal Result [facility] [address] from Last 3 Months or Most Recently Relevant to Health Maintenance Insurance [employer] [facility] MEDICARE ADVANTAGE Care Teams Video Photographer Relationship Specialty Start Date End Date Eunice Carmichael ANP [address] [place] [phone] PCP - General Family Medicine 04/07/22
--- OUTSIDE RECORDS SUMMARY | 2025-06-04 09:54 | XMS_ITS | Encounter Summary ---
Author Organization [email or web address] Address [address] [facility] [address] [place] [address] Care Team Providers Care Building Contractor Name Role Phone Eunice Carmichael Primary Care Provider [phone] Reason for Visit * Reason Comments Med Refill Encounter Details Date Type Department Care Team ([facility] st Contact Info) Description 01/29/[address] [facility] [address] [place], [place] [phone] Eunice Carmichael ANP [address] [place] [address] Moderate persistent asthma without complication Social History [...] Description 06/18/2025 11:15 AM EST Office Visit [facility] [address] [place] [phone] Eunice Carmichael ANP [address] [place] [address] documented as of this encounter Visit Diagnoses Diagnosis Moderate persistent asthma without complication documented in this encounter Additional Health Concerns Assessment Noted Time PHQ-9 Depression Total Score: 0 10/09/19 25 4:12 PM EST documented as of this encounter Care Teams Building Contractor Relationship Specialty Start Date End Date Eunice Carmichael ANP [address] [place] [phone] PCP - General Family Medicine 04/07/22 documented as of this encounter
--- OUTSIDE RECORDS SUMMARY | 2025-06-04 09:54 | XMS_ITS | Encounter Summary ---
Author Organization [employer] Address [address] [facility] 7t [place] [address] Care Team Providers Care Manager Risk Management Name Role Phone Eunice Carmichael Primary Care Provider [phone] Reason for Visit * Reason Comments Med Refill Encounter Details Date Type Department Care Team (Late st Contact Info) Description 01/22/2025 Refill [facility] [address] [place], [place] [phone] Eunice Carmichael ANP [address] [place] [address] Moderate persistent asthma without complication Social History [...] 11:15 AM EST Office Visit [facility] MED[facility] [address] [place] [phone] Eunice Carmichael ANP [address] [place] [address] documented as of this encounter Visit Diagnoses Diagnosis Moderate persistent asthma without complication documented in this encounter Additional Health Concerns Assessment Noted Time PHQ-9 Depression Total Score: 0 10/09/19 25 4:12 PM EST documented as of this encounter Care Teams Manager Risk Management Relationship Specialty Start Date End Date Eunice Carmichael ANP [address] [place] [phone] PCP - General Family Medicine 04/07/22 documented as of this encounter
--- OUTSIDE RECORDS SUMMARY | 2025-06-04 09:55 | XMS_ITS | Patient Health Record ---
Author Organization [facility] Address [address] [place] [address] Care Team Providers Care Fiberglass Tube Molder Name Role Phone Colt Antonio MD, Christiano Primary Care Provide r Javier Jose Unavailable [phone] Reason For Referral No Information Medications Medication SIG (Take, Route, Frequency, Duration) Notes Start Date End Date Status hydroCHLOROthiazide 25mg Active Simvastatin 20mg Act christina Norvasc 10mg Active Atenolol 25mg Active Flovent HFA 220mcg A ctive Albuterol Sulfate 90mcg Active Colyte with Flavor Packs 240 GM as direc lita Orally as directed; Duration: 1 day(s) 12/22/2012 Active Problems Problem Type SNOMED Code ICD Code Onset Dates Problem Status W/U Status Risk Notes Problem Long-term current use of drug therapy (791479684) Encounter for long-term (current) use of other medications (V58.69) Active confirmed Problem Colon cancer screening (194783984) Colon cancer screening (V76.51) Active confirmed Problem History of polyp of colon (situation) (194078489) History of colon polyps (V12.72) Active confirmed Plan Of Treatment Future Test Test Name Order Date COLONOSCOPY 12/22/2012 Insurance Providers Payer Name Payer Address Payer Phone Subscriber Number Group Number Insured Name Patient Relationship to Insured Coverage Start Date Coverage End Date [employer] [address] [place] [address] [id number] ANAND [place] Self - patient is the insured MEDICAID OF [employer] [address] [place] [address] [id number] ANAND [place] Self - patient is the insured Medical (General) History Medical History History ICD Code HTN Denies [place],DM,CVA,renal disease Asthma Hyperlipidemia Surgical History Surgery Date(Month/Year) Vasectomy
== END 2025-06-04 08:51 | disposition home or self-care (01) ==
LOC: HO.MAMMO 08:50
PROVIDERS: PCP Nurse Practitioner Primary Care; Visit Provider Internal Medicine Rheumatology
DX: Z13.820 Encounter for screening for osteoporosis (principal); M88.9 Osteitis deformans of unspecified bone
CPT/HCPCS: 77081

== ENCOUNTER → 2025-06-04 09:15 | Outpatient (BNV) | payer MEDICARE, SELFPAY | PROVIDERS: PCP Nurse Practitioner Primary Care; Visit Provider Radiology Diagnostic Radiology | DX: M88.9 Osteitis deformans of unspecified bone (principal) | CPT/HCPCS: 77081 ==

== ENCOUNTER 2025-06-18 18:23 | Outpatient (REF) | payer MEDICARE, SELFPAY ==
--- OUTSIDE RECORDS SUMMARY | 2025-06-18 11:15 | XMS_ITS | Encounter Summary ---
Author Organization [employer] Address [address] [facility] [address] [place] [address] Care Team Providers Care Filler Shredder Machine Name Role Phone Eunice Carmichael Primary Care Provider [phone] Encounter Details Date Type Department Care Team (Latest Contact Info) Description 06/18/2025 11:15 AM EST Office Visit [facility] [address] [place], [place] [phone] Eunice Carmichael ANP [address] [place], [place] [phone] Encounter for immunization (Primary Dx); Type 2 diabetes mellitus with hyperlipidemia (HCC); Essential hypertension; Hypertension associated with type 2 diabetes mellitus (HCC); Pulmonary hypertension (CMS/HCC) (HCC); 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; Moderate persistent asthma without complication; Osteitis deformans; Encounter for advance care planning; Primary osteoarthritis of both hips Social History Tobacco Use Types Packs/Day Years [...] got money to buy more: Sometimes True 02/24/ 2025 Within the past 12 months,th e food [...] AM EST documented as of this encounter Last Filed Vital Signs Vital Sign Reading Time Taken Comments Blood Pressure 142/78 06/18/2025 11:07 AM EST Pulse 74 06/18/2025 11:07 AM EST Temperature 35.4 C (95.7 F) 06/18/2025 11:07 AM EST Respiratory Rate 16 06/18/2025 11:07 AM EST Oxygen Saturation 98% 06/18/2025 11:07 AM EST Inhaled Oxygen Concentration - - Weight 98.1 kg (216 lb 3.2 oz) 06/18/2025 11:07 AM EST Height 175.3 cm (5' 9 ) 06/18/2025 11:07 AM EST Body Mass Index 31.93 06/18/2025 11:07 AM EST documented in this encounter Patient Instructions * Patient Instructions* RACHEL Hogan - 06/18/2025 11:15 AM EST Based on our discussion, I have outlined the following instructions for you: - You may need to switch to a stronger cholesterol medicine (atorvastatin or rosuvastatin) depending on your lab results. Wait for your cholesterol test results to see if this change is needed. - Get your cholesterol blood test as ordered. This should be done fasting. - Continue checking your blood pressure at home regularly. - Keep taking your current blood pressure medicines and get your kidney function checked with urinetests Please call Dr. Maldonado's office to inquire about the X-rays she ordered as well as the physical therapy she recommended. - Try swimming or pool exercises to help with your hip pain and joint comfort. - Complete the Health Care Proxy and MOLST forms, keep the original at home, and return a copy to the office. Thank you again for your visit, and we look forward to supporting you in your journey to better health. documented in this encounter Progress Notes * RACHEL Hogan - 06/18/2025 11:15 AM EST SUBJECTIVE: Barber Hernandez is a 70 y.o. year old male who presents for chronic disease management. Denies recent illness, injury, or hospitalization. PMH paget's, T2DM w/ HLD/hypertension, asthma Non-smoker Hip Pain and Arthritis - Chronic hip pain, worsens with walking and certain movements - Sudden pain occurs after a few steps, requires straightening to continue walking - Uses hot pad and ice for symptom relief - No use of topical medications - No use of cane, does not want to feel crippled - Regular morning exercise and physically active at work, including stair climbing and bending - Mild bilateral osteoarthritis noted on X-ray in October 2023 - Bone density test performed on June 12, 2025 - Awaiting follow-up with arthritis doctor regarding bone density and physical therapy - Meloxicam recommended by arthritis doctor, not yet started Respiratory Symptoms - Denies breathing difficulties - Reports slight cold prior to encounter Foot Symptoms - Denies foot pain Cardiac Symptoms - History of irregular heartbeat at visit, holter was normal Misc - Healthcare proxy information up to date, daughter Suzanne designated as contact Social History Social History Narrative Not on file Problem List[1] Surgical History[2] Family History[3] Review of Systems Constitutional: Negative for fatigue, fever and unexpected weight change. HENT: Negative for sore throat. Eyes: Negative for visual disturbance. Respiratory: Negative for cough. Gastrointestinal: Negative for abdominal pain, constipation, diarrhea and nausea. Endocrine: Negative for polydipsia, polyphagia and polyuria. Musculoskeletal: Positive for arthralgias. Neurological: Negative for weakness. Psychiatric/Behavioral: Negative for agitation and confusion. The patient is not nervous/anxious. OBJECTIVE: Vitals: 06/18/25 1107 BP: (!) 142/78 Pulse: 74 Resp: 16 Temp: 95.7 ??F (35.4 ??C) TempSrc: Temporal SpO2: 98% Weight: 216 lb 3.2 oz (98.1 kg) Height: 5' 9 (1.753 m) Physical Exam Constitutional: General: He is not in acute distress. Appearance: Normal appearance. He is not ill-appearing. HENT: Head: Normocephalic and atraumatic. Eyes: General: No scleral icterus. Extraocular Movements: Extraocular movements intact. Pupils: Pupils are equal, round, and reactive to light. Cardiovascular: Rate and Rhythm: Normal rate and regular rhythm. Heart sounds: No murmur heard. Pulmonary: Effort: Pulmonary effort is normal. No accessory muscle usage or respiratory distress. Musculoskeletal: Right lower leg: No edema. Left lower leg: No edema. Neurological: Mental Status: He is alert and oriented to person, place, and time. Psychiatric: Mood and Affect: Mood normal. Behavior: Behavior normal. ASSESSMENT/PLAN Diagnoses and all orders for this visit: Encounter for advance care planning Comments: pt identifies daughters as HCPs, contact ray Palacios in chart. Gave HCP and MOLST paperwork 06/18/25. Primary osteoarthritis of both hips Comments: XR via rheum ordered, encouraging exercise Type 2 diabetes mellitus with hyperlipidemia (HCC): - Glycemic control stable; A1c at 6.7. Hyperlipidemia managed with pravastatin; consideration for switching to higher potency statin (atorvastatin or rosuvastatin) per guidelines. - Ordered cholesterol labs. Will recommend switch to rosuvastatin or atorvastatin if LDL remains > 70 at follow-up. Got muscle pain, cramps w/ simvastatin. - foot exam at follow-up A1c at goal under 7 On statin, ACEI, not on ASA H/o Dizziness from metformin Eye exam overdue, recommend again self refer Hypertension associated with type 2 diabetes mellitus (HCC): - Hypertension associated with diabetes; no acute concerns. - Continue current antihypertensive regimen. Monitor kidney function with periodic urine sample. - NIFEdipine XL (Procardia XL) 30 MG 24 hr tablet; Take 1 tablet (30 mg) by mouth Once per day. Do not crush, chew, or split. Essential hypertension: - Blood pressure slightly elevated in office; reported as well-controlled at home. - Refilled nifedipine prescription for 90 days to align with other medications. Continue monitoringblood pressure. Continue lisinopril 40 Metoprolol succinate XL 25 mg +50 mg once daily Nifedipine 30 mg XL 24-hour tablet daily Spironolactone 25 mg Update labs as ordered continue to encourage low salt diet, regular exercise, home BP monitoring, compliance with medications. Call clinic if BP is frequently >150/90 Go to ED/call 911 if > 170/100 and having sx such as MORALES, visual changes, chest pain, SOB Last renal function: Lab Results Component Value Date GLUCOSE 117 (H) 06/22/2024 NA 139 06/22/2024 K 4.1 06/22/2024 CO2 26 06/22/2024 CL 105 06/22/2024 BUN 11 06/22/2024 CREATININE 0.95 04/30/2025 EGFR >60 04/30/2025 Lab Results Component Value Date MICROALBCREA 30 (H) 11/17/2021 Lab Results Component Value Date MICROALBCREU 22.4 06/22/2024 Encounter for immunization: - Due for Tdap immunization. - Administered Tdap vaccine during visit. Pulmonary hypertension (CMS/HCC) (HCC): - No acute symptoms reported; breathing stable. - Continue current management. Monitor for symptoms. 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 Reports home BP at goal. - No change in management. Continue home monitoring. On multiple meds Moderate persistent asthma without complication: - Asthma stable; using Arnuity inhaler. - Continue Arnuity inhaler as prescribed. Avoid asthma triggers if possible. Continue albuterol q4-6 hrs PRN wheezing/SOB. Let us know if using albuterol >2x/wk. Osteitis deformans: - Managed by rheumatology; no changes in management discussed. - Continue periodic monitoring per rheumatology recommendations. Osteoarthritis of the hip: - Mild bilateral osteoarthritis of the hip confirmed by X-ray (October 2023). Symptoms include hip pain and intermittent instability. - Recommended physical therapy (ordered by rheumatology). Advised to follow up with rheumatology regarding meloxicam prescription and physical therapy initiation. Suggested swimming or pool-based exercise for joint relief. - Risks and side effects: Monitor kidney function if meloxicam initiated. Healthcare proxy and advance directives: - Healthcare proxy information up to date; Suzanne designated as contact. - Provided MOLST form and instructions for completion. Advised to keep original at home and return copy for office records. Prescription - Nifedipine refill adjusted to 90-day supply Based on our discussion, I have outlined the following instructions for you: - You may need to switch to a stronger cholesterol medicine (atorvastatin or rosuvastatin) depending on your lab results. Wait for your cholesterol test results to see if this change is needed. - Get your cholesterol blood test as ordered. This should be done fasting. - Continue checking your blood pressure at home regularly. - Keep taking your current blood pressure medicines and get your kidney function checked with urinetests Please call Dr. Maldonado's office to inquire about the X-rays she ordered as well as the physical therapy she recommended. - Try swimming or pool exercises to help with your hip pain and joint comfort. - Complete the Health Care Proxy and MOLST forms, keep the original at home, and return a copy to the office. Thank you again for your visit, and we look forward to supporting you in your journey to better health. This note was drafted using Ambient (AI) technology. 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 No pertinent surgical history. [3] No family history on file. [4] Current Outpatient Medications on File Prior to Visit Medication Sig Dispense Refill acetaminophen (Tylenol) 500 MG tablet Arnuity Ellipta 200 MCG/ACT inhaler INHALE 1 PUFF BY MOUTH EVERY DAY AT THE SAME TIME RINSE MOUTH AFTER USING 30 each 3 cholecalciferol VITAMIN D (Vitamin D-3) 50 MCG (2000 UT) tablet TAKE 1 TABLET BY MOUTH EVERY MORNING 90 tablet 1 Combivent Respimat 20-100 MCG/ACT inhaler INHALE 1 PUFF 4 TIMES A DAY, MAY TAKE ADDITIONAL PUFFS ASNEEDED. (MAX OF 6 PUFFS PER DAY) 4 g 5 glucose blood (FREESTYLE LITE) test strip Apply 1 strip topically every 8 (eight) hours. Januvia 25 MG tablet TAKE 1 TABLET BY MOUTH EVERY DAY IN THE MORNING 30 tablet 5 lisinopril 40 MG tablet TAKE 1 TABLET BY MOUTH EVERY MORNING 90 tablet 1 metoprolol succinate XL (Toprol-XL) 25 MG 24 hr tablet TAKE 1 TABLET BY MOUTH EVERY MORNING 90 tablet 1 metoprolol succinate XL (Toprol-XL) 50 MG 24 hr tablet TAKE 1 TABLET BY MOUTH DAILY 90 tablet 1 montelukast (Singulair) 10 MG tablet TAKE 1 TABLET BY MOUTH EVERY DAY IN THE EVENING 90 tablet 3 naproxen (Naprosyn) 500 MG tablet Take 1 tab twice daily for 5-7 days, then take as needed up to twice daily; take with food 60 tablet 0 pravastatin (Pravachol) 40 MG tablet Take 1 tablet (40 mg) by mouth Once per day. 90 tablet 1 spironolactone (Aldactone) 25 MG tablet TAKE 1 TABLET BY MOUTH EVERY MORNING 90 tablet 3 tiZANidine (Zanaflex) 2 MG tablet 1-2 tabs at bedtime as needed for muscle pain 20 tablet 0 triamcinolone (Kenalog) 0.1 % cream Apply topically 2 times daily. 45 g 1 Viagra 100 MG tablet TAKE 1 TABLET 1 HOUR BEFORE SEXUAL RELATIONS ONCE DAILY NEEDED. 20 tablet 2 [DISCONTINUED] NIFEdipine XL (Procardia XL) 30 MG 24 hr tablet TAKE 1 TABLET BY MOUTH EVERY DAY. DONOT BREAK, CRUSH, DISSOLVE OR CHEW 30 tablet 2 [DISCONTINUED] predniSONE (Deltasone) 20 MG tablet Take 2 tabs once daily for 5 days, take with food 10 tablet 0 No current facility-administered medications on file prior to visit. documented in this encounter Plan of Treatment Scheduled Orders Name Type Priority Associated Diagnoses Orde r Schedule Albumin, Random Urine W/Creatinine Lab Routine Type 2 diabetes mellitus with hyperlipidemia (HCC) Expected: 06/18/2025 (Approximate), Expires: 06/18/2026 documented as of this encounter Procedures Procedure Name Priority Date/Time Associated Diagnosis Comments POCT GLYCOSYLATED HEMOGLOBIN (HGB A1C) Routine 06/18/2025 11:11 AM EST Type 2 diabetes mellitus with hyperlipidemia (HCC) POCT GLUCOSE Routine 06/18/2025 11:08 AM EST Type 2 diabetes mellitus with hyperlipidemia (HCC) documented in this encounter Results * (ABNORMAL) POCT glycosylated hemoglobin (Hgb A1c) (06/18/2025 11:11 AM EST) Hemoglobin A1C 6.8(A) 4.0 - 5.7 % QC Media Lot # [id number] Lot# Expiration Date [id number] Blood Capillary blood specimen / Unknown 06/18/2025 11:11 AM EST Result Nighat RAMOS POINT OF CARE TEST ENTER/EDIT OR DERABLES Final Result * (ABNORMAL) POCT glucose manually resulted (06/18/2025 11:08 AM EST) Glucose Blood, POC 214(A) 60 - 200 mg/dL QC Media Lot # [id number] Lot# Expiration Date 3,026 Blood Capillary blood specimen / Unknown 06/18/2025 11:08 AM EST Result Nighat RAMOS POINT OF CARE TEST ENTER/EDIT OR DERABLES Final Result documented in this encounter Visit Diagnoses Diagnosis Encounter for immunization- Primary Type 2 diabetes mellitus with hyperlipidemia (HCC) Essential hypertension Unspecified essential hypertension Hypertension associated with type 2 diabetes mellitus (HCC) Pulmonary hypertension (CMS/HCC) (HCC) 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
--- OUTSIDE RECORDS SUMMARY | 2025-06-18 18:29 | XMS_ITS | Encounter Summary ---
Author Organization [employer] Address [address] [facility] 7t [place] [address] Care Team Providers Care Statistician Name Role Phone Eunice Carmichael Primary Care Provider [phone] Reason for Visit * Reason Comments Med Refill Encounter Details Date Type Department Care Team ([facility] st Contact Info) Description 01/29/2025 Refill [facility] [address] [place], [place] [phone] Eunice Carmichael ANP [address] [place] [address] Moderate persistent asthma without complication Social History [...] as of this encounter Plan of Treatment Not on file documented as of this encounter Visit Diagnoses Diagnosis Moderate persistent asthma without complication documented in this encounter Additional Health Concerns Assessment Noted Time PHQ-9 Depression Total Score: 0 10/09/19 25 4:12 PM EST documented as of this encounter Care Teams Statistician Relationship Specialty Start Date End Date Eunice Carmichael ANP [address] [place] [address] PCP - General Family Medicine 04/07/22 documented as of this encounter
--- OUTSIDE RECORDS SUMMARY | 2025-06-18 18:29 | XMS_ITS | Encounter Summary ---
Author Organization [employer] Address [address] [facility] [address]t [place] [address] Care Team Providers Care Senior Living Sales Counselor Name Role Phone Eunice Carmichael RACHEL Primary Care Provider [phone] Encounter Details Date Type Department Care Team (Latest Contact Info) Description 06/18/2025 Travel Social History Tobacco Use Types Packs/Day Years [...] documented as of this encounter Care Teams Senior Living Sales Counselor Relationship Specialty Start Date End Date Eunice Carmichael ANP [address] [place] [address] PCP - General Family Medicine 04/07/22 documented as of this encounter
--- OUTSIDE RECORDS SUMMARY | 2025-06-18 18:29 | XMS_ITS | Patient Health Record ---
Author Organization [facility] Address [address] [place] [address] Care Team Providers Care Process Checker Name Role Phone Colt Antonio MD, Christiano Primary Care Provide r Javier Jose Unavailable [phone] Reason For Referral No Information Medications Medication [...] Problem Long-term current use of drug therapy (359115812) Encounter for long-term (current) use of other medications (V58.69) Active confirmed Problem Colon cancer screening (780151360) Colon cancer screening (V76.51) Active confirmed Problem History of polyp of colon (situation) (319686867) History of colon polyps (V12.72) Active confirmed Plan Of Treatment Future Test Test Name Order Date COLONOSCOPY 12/22/2012 Insurance Providers Payer Name Payer Address Payer Phone Subscriber Number Group Number Insured Name Patient Relationship to Insured Coverage Start Date Coverage End Date [employer] [address] [place] [address] [id number] [id number] [place] Self - patient is the insured MEDICAID OF [employer] [address] [place] [address] [id number] ANAND DC Self - patient is the insured Medical (General) History Medical History History ICD Code HTN Denies HI,DM,CVA,renal disease Asthma Hyperlipidemia Surgical History Surgery Date(Month/Year) Vasectomy
--- OUTSIDE RECORDS SUMMARY | 2025-06-18 18:29 | XMS_ITS | Encounter Summary ---
Author Organization [employer] Address [address] [facility] 7[address] [place] [address] Care Team Providers Care Salad Chef Name Role Phone Eunice Carmichael Primary Care Provider [phone] Reason for Visit * Reason Onset Date Comments chart prep 06/15/2025 Encounter Details Date Type Department Care Team ([facility] st Contact Info) Description 06/15/2025 Telephone [facility] MED[facility]INE [address] [place], [place] [phone] Eunice Carmichael ANP [address] [place], [place] [phone] chart prep Social History Tobacco Use Types Packs/Day Years [...] AM EST documented as of this encounter Miscellaneous Notes * Telephone Encounter - Maximo Turcios [place] - 06/15/2025 8:37 AM EDT Chart Prep Labs: done Images: done Referrals: complete Vaccines due: Covid, Flu, Tdap, Hep B, and RSV Screenings: eye exam and foot exam Overdue care gaps: A1c, Glucose, and Disability screen documented in this encounter Plan of Treatment Not on file documented as of this encounter Visit Diagnoses Not on filedocumented in this encounter Additional Health Concerns Assessment Noted Time PHQ-9 Depression Total Score: 0 10/09/19 25 4:12 PM EST documented as of this encounter Care Teams Salad Chef Relationship Specialty Start Date End Date Eunice Carmichael ANP [address] [place] [id number] PCP - General Family Medicine 04/07/22 documented as of this encounter
--- OUTSIDE RECORDS SUMMARY | 2025-06-18 18:29 | XMS_ITS | Encounter Summary ---
Author Organization [employer] Address [address] [facility] [address] [place] [address] Care Team Providers Care Cardiographer Name Role Phone Eunice Carmichael Primary Care Provider [phone] Reason for Visit * Reason Comments Med Refill Encounter Details Date Type Department Care Team (Late st Contact Info) Description 01/22/2025 Refill [facility] P[facility]S [address] [place], [place] [phone] Eunice Carmichael ANP [address] [place] [address] Moderate persistent asthma without complication Social History [...] documented as of this encounter Care Teams Cardiographer Relationship Specialty Start Date End Date Eunice Carmichael ANP [address] [place] [address] PCP - General Family Medicine 04/07/22 documented as of this encounter
--- OUTSIDE RECORDS SUMMARY | 2025-06-18 18:29 | XMS_ITS | Clinical Summary ---
Author Organization [employer] Address [address] [facility] 7t [place] [address] Care Team Providers Care Tile Sprayer Name Role Phone Martha Simmons RACHEL Primary Care Provider [phone] Allergies Active Allergy Reactions Criticality Noted Date Comments Chlorthalidone High 11/20/2016 Other reaction(s): lightheadness, hot flashes, weak Hydrochlorothiazide High 09/23/2016 Other reaction(s): Muscle Cramping Metformin Dizziness 05/27/2023 Simvastatin 11/28/2013 Other reaction(s): muscle and body pains, cramps Medications acetaminophen (Tylenol) 500 MG tablet 016 Active glucose blood (FREESTYLE LITE) test strip Apply 1 strip topically every 8 (eight) hours. 020 Active triamcinolone (Kenalog) 0.1 % creamIndications: Skin pruritus Apply topically 2 times daily. 45 g 1 024 Active tiZANidine (Zanaflex) 2 MG tabletIndications [...] cholecalciferol VITAMIN D (Vitamin D-3) 50 MCG (1999) tabletIndications :Vitamin D deficiency TAKE 1 TABLET BY MOUTH EVERY MORNING 90 tablet 1 025 Active Januvia 25 MG tabletIndications :Type [...] EVERY MORNING 90 tablet 1 025 Active spironolactone (Aldactone) 25 MG tablet TAKE 1 TABLET BY MOUTH EVERY MORNING 90 tablet 3 025 Active NIFEdipine XL (Procardia XL) 30 MG 24 hr tabletIndications :Essential hypertension Take 1 tablet (30 mg) by mouth Once per day. Do not crush, chew, or split. 90 tablet 3 025 Active predniSONE (Deltasone) 20 MG tabletIndications :Right leg pain,Low back pain radiating to right leg Take 2 tabs once daily for 5 days, take with food 10 tablet 024 2024 Discontinued(T herapy completed) NIFEdipine XL (Procardia XL) 30 MG 24 hr tabletIndications :Essential hypertension TAKE 1 TABLET BY MOUTH EVERY DAY. DO NOT BREAK, CRUSH, DISSOLVE OR CHEW 30 tablet 2 025 2024 Discontinued(R eorder (will not trigger notification to Pharmacy)) Active Problems Problem Noted Date Diagnosed Date Encounter for advance care planning 06/18/2025 Overview (06/18/2025): pt identifies daughters as HCPs, contact ray Palacios in chart. Gave HCP and MOLST paperwork 06/18/25. 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 03/22/2020 Pulmonary hypertension (CMS/HCC) 03/22/2020 Class 1 obesity 12/27/2018 Moderate persistent asthma without complication 12/27/2018 Essential hypertension 03/02/2018 Swelling of knee joint 03/02/2018 Asthma 07/18/2012 Depressive disorder 07/18/2012 Erectile dysfunction 07/18/2012 Hyperlipidemia 07/18/2012 Tubular adenoma 07/18/2012 Encounters Date Type Department Care Team Description 06/18/2025 11:15 AM EST Office Visit [facility] MEDICINE [address] [place] [phone] Martha Simmons ANP Encounter for immunization (Primary Dx); Type 2 diabetes mellitus with hyperlipidemia (HCC); Essential hypertension; Hypertension associated with type 2 diabetes mellitus (HCC); Pulmonary hypertension (CMS/HCC) (HCC); 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; Moderate persistent asthma without complication; Osteitis deformans; Encounter for advance care planning; Primary osteoarthritis of both hips 06/18/2025 Travel 06/15/2025 Telephone [facility] MEDICINE [address] [place] [phone] Martha Simmons ANP chart prep 06/05/2025 Results Follow-Up [facility] MEDICINE [address] [place] [phone] Martha Simmons ANP XR DEXA APPENDICULAR SKELETON 06/04/2025 Orders Only [facility] External Provider, [facility] 05/06/2025 Refill [facility] CHC MED & PEDS [address] [place] [address] Martha Simmons ANP 05/04/2025 Refill [facility] WALK-IN CENTER [address] [place] [address] Martha Simmons ANP Essential hypertension 04/30/2025 Orders Only GENERIC EXTERNAL DATA DEPARTMENT Provider, Generic External Data 04/23/2025 Orders Only [facility] MEDICINE [address] [place] [address] Martha Simmons ANP 04/15/2025 Refill [facility] MEDICINE [address] [place] [address] Martha Simmons ANP Essential hypertension 04/10/2025 Telephone [facility] MEDICINE [address] [place] [address] Martha Simmons ANP May04/02/2025 Refill [facility] MEDICINE [address] [place] [address] Martha Simmons ANP 03/25/2025 Refill [facility] MEDICINE [address] [place] [address] Martha Simmons ANP 03/18/2025 Refill [facility] CHC MED & PEDS [address] [place] [address] Martha Simmons ANP Erectile dysfunction due to diseases classified elsewhere from Last 3 Months Immunizations Immunization Administration [...] tox oid, preservative free, adsorbed 10/29/2004 Tdap 06/18/2025,06/10/2015 Zoster, Recombinant 07/22/2022,05/18/2022 Zoster, live 06/10/2015 Social [...] Mass Index 31.93 06/18/2025 11:07 AM EST Plan of Treatment Health Maintenance Due Date Last Done Comments [...] 2025 05/11/2022, 12/08/2021, 06/16/2021, Additional history exists Diabetes: Urine Protein Screening 06/22/2025 06/22/2024, 11/17/2021, 04/09/2020 Lipid Panel 06/22/2025 06/22/2024, 04/0 11/2021, 02/21/2021 Diabetes: Hemoglobin A1C 09/18/2025 025, 02/05/2025, 10/09/2024, Additional history exists Depression Screening 10/09/2025 10/09/2024, 10/09/19 25 SDOH Screening 10/09/2025 10/09/2024 Alcohol/Substance Use Screening 02/05/2026 02/05/2025 Tobacco Screening 06/18/2026 06/18/2025 Colonoscopy 11/25/2026 11/25/2021 Colorectal Cancer Screening 11/25/2026 DTaP/Tdap/Td Vaccines (3 - Td or Tdap) 06/18/2035 06/18/2025, 06/10/2015, 10/29/2004 Hepatitis C Screening Completed 11/17/2021 Zoster Vaccines Completed 07/22/2022, 10/2021, 06/10/2015 Pneumococcal Vaccine: 50+ Years Completed 10/09/2024, 05/16/2022, 07/04/2019, Additional history exists Influenza Vaccine Completed 05/15/2025, , 05/11/2022, Additional history exists HIB Vaccines Aged Out [...] Type 2 diabetes mellitus with hyperlipidemia (HCC) XR DEXA APPENDICULAR SKELETON Routine 06/04/2025 9:13 AM EDT COLLAGEN TYPE I C-TELOPEPTIDE (CTX) Routine 04/30/2025 [...] SERUM Routine 04/30/2025 8:0 4 AM EDT ALBUMIN, RANDOM URINE W/CREATININE Routine 06/22/2024 11:11 [...] to Health Maintenance Results * (ABNORMAL) POCT glycosylated hemoglobin (Hgb A1c) (06/18/2025 11:11 AM EST) Hemoglobin A1C 6.8(A) 4.0 - 5.7 % QC Media Lot # [id number] Lot# Expiration Date [id number] Blood Capillary blood specimen / Unknown 06/18/2025 11:11 AM EST [facility] POINT OF CARE TEST ENTER/EDIT OR DERABLES Final Result * (ABNORMAL) POCT glucose manually resulted (06/18/2025 11:08 AM EST) Glucose Blood, POC 214(A) 60 - 200 mg/dL QC Media Lot # [id number] Lot# Expiration Date [id number] Blood Capillary blood specimen / Unknown 06/18/2025 11:08 AM EST Martha RAMOS POINT OF CARE TEST ENTER/EDIT OR DERABLES Final Result * XR DEXA APPENDICULAR SKELETON (06/04/2025 9:13 AM EDT) Anatomical Region Laterality Modality Abdomen Radiographic [place] ging 06/04/2025 9:13 AM EDT Narrative 06/05/2025 3:07 PM EDT [facility] [address] [place] [address] Mammography Report Signed Patient: Barber Hernandez MR#: [id number] : 1955 Acct:[id number] Age/Sex: 70 / M ADM Date: 06/04/25 Loc: HO.MAMMO Attending Dr: Franklin Maldonado MD Ordering Physician: Franklin Maldonado MD Results: Date of Service: 06/04/25 Follow Up: Procedure(s): XR DEXA appendicular skeleton Accession Number(s): [id number] cc: MARTHA SIMMONS ASSISTANT BASEBALL COACH; Franklin Maldonado MD Reason For Exam: M88.9 - Osteitis deformans of unspecified bone EXAMINATION: DXA BONE DENSITY EXTREMITY HISTORY: M88.9 - Osteitis deformans of unspecified bone TECHNIQUE: [employer] Dual energy absorptiometry (DEXA) of the lumbar spine, total left hip, and femoral neck was performed. COMPARISON: There are no prior studies for comparison. FINDINGS: The bone mineral density of the lumbar spine is 1.185 g/cm2, corresponding to a T-score of -0.1, and a Z-score of -0.9. This is indicative of normal bone mineral density. The bone mineral density of the left total hip is 1.134 g/cm2, corresponding to a T-score of 0.2, and a Z-score of -0.4. This is indicative of normal bone mineral density. The bone mineral density of the left femoral neck is 1.043 g/cm2, corresponding to a T-score of -0.2, and a Z-score of -0.4. This is indicative of normal bone mineral density. MM/XR DEXA appendicular skeleton IMPRESSION: Based on bone mineral density, and according to World Health Organization (WHO) criteria, the diagnosis is consistent with normal bone mineral density. Statistically, 68% of repeat scans fall within 1 SD (+/- 0.010 g/cm2 for AP spine L1-L4) and 1 SD (+/- 0.012 g/cm2 for femur total) FRAX is a trademark of the [employer]'s [employer] for Metabolic Bone Disease, a World Health Organization (WHO) Collaborating Center. Electronically signed by: Javier Oneill MD 06/05/2025 03:04 PM EDT RP Dictated By: Javier Oneill MD Signed By: <Electronically signed by Javier Oneill MD in OV> 06/05/25 1504 DD/ TD/TT: 06/05/25929 Iron Plastic Bullet Maker: Procedure Note Donotuseinterpreter, Image - 06/05/[address] [facility] [address] [place], [place] [address] Mammography Report Signed Patient: Barber Hernandez#: [id number] : 4Acct:[id number] Age/Sex: 70 / MADM Date: 06/04/25 Loc: LOGAN Attending Dr: Franklin Maldonado MD Ordering Physician: Franklin Maldonado MDResults: Date of Service: 06/04/25Follow Up: Procedure(s): XR DEXA appendicular skeleton Accession Number(s): [id number] cc: MARTHA SIMMONS NP; Franklin Maldonado MD Reason For Exam: M88.9 - Osteitis deformans of unspecified bone EXAMINATION: DXA BONE DENSITY EXTREMITY HISTORY: M88.9 - Osteitis deformans of unspecified bone TECHNIQUE: [employer]ach Dual energy absorptiometry (DEXA) of the lumbar spine, total left hip, and femoral neck was performed. COMPARISON: There are no prior studies for comparison. FINDINGS: The bone mineral density of the lumbar spine is 1.185 g/cm2, corresponding to a T-score of -0.1, and a Z-score of -0.9. This is indicative of normal bone mineral density. The bone mineral density of the left total hip is 1.134 g/cm2, corresponding to a T-score of 0.2, and a Z-score of -0.4. This is indicative of normal bone mineral density. The bone mineral density of the left femoral neck is 1.043 g/cm2, corresponding to a T-score of -0.2, and a Z-score of -0.4. This is indicative of normal bone mineral density. MM/XR DEXA appendicular skeleton IMPRESSION: Based on bone mineral density, and according to World Health Organization (WHO) criteria, the diagnosis is consistent with normal bone mineral density. Statistically, 68% of repeat scans fall within 1 SD (+/- 0.010 g/cm2 for AP spine L1-L4) and 1 SD (+/- 0.012 g/cm2 for femur total) FRAX is a trademark of the [employer]'s [employer] for Metabolic Bone Disease, a World Health Organization (WHO) Collaborating Center. Electronically signed by: Javier Oneill MD 06/05/2025 03:04 PM EDT Dictated By: Javier Oneill MD Signed By: <Electronically signed by Javier Oneill MD in OV> 06/05/25 1504 DD/ TD/TT: 06/05/25 09 Iron Plastic Bullet Maker: us [facility] External Provider IMG XR PROCEDURES Final Result * Collagen Type I C-Telopeptide (CTx) (04/30/2025 8:04 AM EDT) C-Telopeptide (CTx) 186 see note pg/mL [facility] Comment: Unable to flag abnormal result(s), [...] of bone loss.For additional information, please refer tohttps://education.Slanissue/faq/UDM601(This link is being provided for informational/educational purposes only.)THIS TEST WAS PERFORMED AT:[employer] [id number] [place] [address]JYHYETTGUI BLISS MD,PHD 04/30/2025 8:04 AM EDT 04/30/2025 8:04 AM EDT us Generic External Data Provider LAB BLOOD ORDERAB LES Final Result [facility] [address] [place] [address] [phone] * Vitamin D, 25-Hydroxy, Total, Immunoassay (04/30/2025 8:04 AM EDT) Vitamin D 25-OH Total 49.3 >30 ng/mL [facility] Comment: Health Based Reference Values*< 20 ng/mL Qbbvwvxrt10-62 ng/mL Insufficient> 30 ng/mL Sufficient*Katty KELLY. N [...] ORDERAB LES Final Result Performing Organization Address [facility]/ZIP Co de Phone Number [facility] [address] [place] [phone] * Creatinine, Serum (04/30/2025 8:04 AM EDT) Creatinine, Serum 0.95 0.5 - 1.4 mg/dL [facility] Estimated Glomerular Filt Rate >60 [facility] Comment:Chronic Kidney Disea se: Estimated GFR < 60 mL/min/1.90n0Qvaozi Kidney Disease: Estimated GFR < 15 mL/min/1.73m2 04/30/2025 8:04 AM EDT 04/30/2025 8:04 AM EDT us Generic External Data Provider LAB BLOOD ORDERAB LES Final Result Performing Organization Address [facility]/ZIP Co de Phone Number [facility] [address] [place] [phone] * Alkaline Phosphatase, Bone Specific (04/30/2025 8:04 AM EDT) Alkaline Phosphatase, Bone Specific 9.6 see note mcg/L [facility] Comment:Unable to flag abnor mal result(s), [...] Biol Markers (1995) 11:159-164THIS TEST WAS PERFORMED AT:[employer] [id number] [place] [address]BGXEPLMGUI BLISS MD,PHD 04/30/2025 8:04 AM EDT 04/30/2025 8:04 AM EDT Generic External Data Provider LAB BLOOD ORDERAB LES Final Result Performing Organization Address [facility] Co de Phone Number [facility] [address] [place] [address] [phone] * ALT (04/30/2025 8:04 AM EDT) Alanine Aminotransferase 14 0 - 40 U/L [facility] 04/30/2025 8:04 AM EDT 04/30/2025 8:04 AM EDT us Generic External Data Provider LAB BLOOD ORDERAB LES Final Result Performing Organization Address [facility] Co de Phone Number [facility] [address] [place] [address] [phone] * AST (04/30/2025 8:04 AM EDT) Aspartate Amino Transferase 18 5 - 37 U/L [facility] 04/30/2025 8:04 AM EDT 04/30/2025 8:04 AM EDT us Generic External Data Provider LAB BLOOD ORDERAB LES Final Result Performing Organization Address City/[facility]/ZIP Co de Phone Number [facility] [address] [place] [address] [phone] * Phosphate (As Phosphorus) (04/30/2025 8:04 AM EDT) Phosphorus 3.1 2.7 - 4.5 mg/dL [facility] 04/30/2025 8:04 AM EDT 04/30/2025 8:04 AM EDT Generic External Data Provider LAB BLOOD ORDERAB LES Final Result Performing Organization Address [facility] Co de Phone Number [facility] [address] [place] [address] [phone] * Alkaline Phosphatase (04/30/2025 8:04 AM EDT) Alkaline Phosphatase 87 39 - 117 U/L [facility] 04/30/2025 8:04 AM EDT 04/30/2025 8:04 AM EDT Generic External Data Provider LAB BLOOD ORDERAB LES Final Result Performing Organization Address [facility] Co de Phone Number [facility] [address] [place] [address] [phone] * Calcium (04/30/2025 8:04 AM EDT) Calcium 8.9 8.4 - 10.2 mg/dL [facility] 04/30/2025 8:04 AM EDT 04/30/2025 8:04 AM EDT us Generic External Data Provider LAB BLOOD ORDERAB LES Final Result Performing Organization Address [facility] Co de Phone Number [facility] [address] [place] [address] [phone] * Albumin (04/30/2025 8:04 AM EDT) Albumin Level 4.2 3.5 - 5.0 g/dL [facility] 04/30/2025 8:04 AM EDT 04/30/2025 8:04 AM EDT Generic External Data Provider LAB BLOOD ORDERAB LES Final Result Performing Organization Address [facility] Co sd Phone Number [facility] [address] [place] [phone] * Albumin, Random Urine W/Creatinine (06/22/2024 11:11 AM EST) Creatinine, Urine 164.94 mg/dL [facility] Microalbumin Urine 37.0 mg/L [facility] Microalbum Creatinine Ratio Ur 22.4 <30 ug/mg cr [facility] Comment:Albumin/Creatinine R atio Reference Ranges: Normal: < 30 ug/mg creatinine Microalbuminuria: 30 - 300 ug/mg creatinineClinical Albuminuria: > 300 ug/mg creatinine Urine (Urine, Random) 06/22/2024 11:11 AM EST 06/22/2024 12:57 PM EST us Martha Simmons [facility] LAB URINE ORDERABLES Final Resul t Performing Organization Address [facility] Co de Phone Number [facility] [address] [place] [address] [phone] * (ABNORMAL) Lipid Panel, Standard (06/22/2024 11:11 AM EST) Triglycerides 114 <150 mg/dL [facility] Comment:Desirable Triglyceri de: less than 150 mg/dLBorderline High Triglyceride 150-199 mg/dLHigh Triglyceride: 200-499 mg/dLVery High Triglyceride: greater than or equal to 5OO mg/dL Cholesterol 187 <200 mg/dL [facility] Comment:Desirable Cholestero l: less than 200 mg/dLBorderline High Cholesterol: 200-239 mg/dLHigh Cholesterol: greater than 239 mg/dL LDL Cholesterol Calculated 103(H) <100 mg/dL [facility] Comment:Desirable LDL: less than 100 mg/dLNear Optimal/Above Optimal LDL: 110- 129 mg/dLBorderline High LDL: 130-159 mg/dLHigh LDL: 160-189 mg/dLVery High LDL: greater than or equal to 190 mg/dL HDL Cholesterol 62 >40 mg/dL [facility] Comment:Desirable HDL: great er than 40 mg/dL Note: This HDL assay may give artificially low results in patients with liver disease. Blood Venous blood specimen / Unknown 06/22/2024 11:11 AM EST 06/22/2024 1:14 PM EST [facility] LAB BLOOD ORDERABLES Final Resul t [facility] [address] [place] [address] [phone] * Hm Colonoscopy (11/25/2021) Colonoscopy Normal [...] a test for HCV RNA (test code 92254) is suggested. For additional information please refer to http://education.Slanissue/faq/RVC19y3 (This link is being provided for informational/ educational purposes only.) 11/17/2021 8:09 AM EDT us Pat West ASSISTANT BASEBALL COACH HISTORICAL/NON ORDERABLE LABS F inal Result [facility] [address] from Last 3 Months or Most Recently Relevant to Health Maintenance Insurance [facility] MEDICARE ADVANTAGE Care Teams Tile Sprayer Relationship Specialty Start Date End Date Martha Simmons ANP [address] [place] [phone] PCP - General Family Medicine 04/07/22
--- OUTSIDE RECORDS SUMMARY | 2025-06-18 18:29 | XMS_ITS | Encounter Summary ---
Author Organization [employer] Address [address] [facility] [address] [place] [address] Care Team Providers Care Electrical Superintendent Name Role Phone Eunice Carmichael Primary Care Provider [phone] Reason for Visit * Reason Comments Med Refill Encounter Details Date Type Department Care Team ([facility] st Contact Info) Description 08/14/2024 Refill [facility] CHC MED & PEDS [address] [place], [place] [phone] Eunice Carmichael ANP [address] [place] [address] Erectile dysfunction due to diseases classified elsewhere [...] elsewhere documented in this encounter Care Teams Electrical Superintendent Relationship Specialty Start Date End Date Eunice Carmichael ANP [address] [place] [phone] PCP - General Family Medicine 04/07/22 documented as of this encounter
--- OUTSIDE RECORDS SUMMARY | 2025-06-18 18:29 | XMS_ITS | Encounter Summary ---
Author Organization [employer] Address [address] [facility] [address] [place] [address] Care Team Providers Care Pouring Crane Operator Name Role Phone Eunice Carmichael Primary Care Provider [phone] Reason for Visit * Reason Comments Med Refill Encounter Details Date Type Department Care Team ([facility] st Contact Info) Description 01/23/[address] [facility] CHC MED & PEDS [address] [place], [place] [phone] Eunice Carmichael ANP [address] [place] [address] Moderate persistent asthma without complication Social History [...] documented as of this encounter Care Teams Pouring Crane Operator Relationship Specialty Start Date End Date Eunice Carmichael ANP [address] [place] [address] PCP - General Family Medicine 04/07/22 documented as of this encounter
[2025-06-18 19:18] LABS: Microalbum/Creatinine Ratio Ur 6.4 ug/mg cr (<30)
== END 2025-06-18 18:24 | disposition home or self-care (01) ==
LOC: HO.LNP 18:23
PROVIDERS: Visit Provider Nurse Practitioner Primary Care
DX: E11.69 Type 2 diabetes mellitus with other specified complication (principal); E78.5 Hyperlipidemia, unspecified
CPT/HCPCS: 82043; 82570

== ENCOUNTER 2025-08-14 13:47 | Outpatient (AMB) | payer MEDICARE, SELFPAY ==
[2025-08-14 13:49] VITALS: BP 190/90; PULSE 64; O2SAT 98; BMI 32.9
--- NOTE | 2025-08-14 13:49 | A.OFFVIS_ITS ---
Vital Signs 08/14/25 13:49 Height 5 ft 9 in Weight 223 lb 1.725 oz BMI 32.9 BP 190/90 H Blood Pressure Location Rt brachial Position Sitting Pulse 64 Pulse Source Pulse Oximeter Pulse Oximetry (%) 98 Oxygen Delivery Method Room Air Comment left arm 150/80 Intake Visit Reasons: 3months Intake Note: Patient presents today for arthritis follow up Accompanied by: Self / Same As Patient Allergies hydrochlorothiazide (HYDROCHLOROTHIAZIDE) Allergy (Intermediate, Verified 08/14/25 13:49) LEG CRAMPING HPI HPI 3months: Details: Meloxicam is not helping. Unable to sleep on left side at night. Pain is all day. Tyelnol 500mg x2 is more helpful than meloxicam. He did not receive a call from PT. Left lateral hip pain is causing his left hip to give out on him at work. He is very active at work with going up and down stairs and ladders. [facility] Medical History Tubular adenoma of colon Arthritis Asthma Hypercholesteremia HTN (hypertension) Diabetes Surgical History History of colonoscopy Family History Father No problems noted. Social History Household Members Other:: Are you a primary primary care sales representative to a significant other at home: No Do you presently have visiting nurse or other home services: No Alcohol intake: never Patient Tobacco Use Status: Former Tobacco user Tobacco use type: Cigarette Advance Directives Date on File: 09/17/00 Current occupation: deliver Appliances Physical Exam Vital Signs: Last Vital Signs Pulse 64 08/14/25 13:49 BP 190/90 H 08/14/25 13:49 Pulse Ox 98 08/14/25 13:49 Oxygen Delivery Method Room Air 08/14/25 13:49 BMI result Body Mass Index 32.9 Const Other: General: Comfortable Skin: No lesions MSK: Left trochanteric bursa tenderness palpated. No tenderness of groin region. Limited full external rotation of bilateral hips. Office Procedures AMB Joint Injection/Aspiration Joint Injection/Aspiration Details: Left trochanteric bursa Prep: site was prepped using aseptic technique Injected: 40 mg of, Kenalog, with 1 mL of and 1% plain lidocaine Procedure: Informed verbal consent was obtained. The patient tolerated the procedure well. Postprocedure protocol was discussed with patient. Coding 30635 - Large joint Procedure code (CPT) selection complete Office Meds lidocaine (PF) 10 mg/mL (1 %) injection solution Performing Provider: Franklin Maldonado MD Performing Location: [facility] Administered by: Franklin Maldonado MD on 08/14/25 14:26 Dose Route Admin Location Dispensed Lot Number Expiration Date FORMERLY NAMED [facility] Sheet Pile Hammer Operator 1 mL Infiltration left hip bursa 2 mL [id number] 10/13/28 54448-552-9 4 [employer] Total Dispensed Waste 2 mL 50 % Kenalog 40 mg/mL suspension for injection Performing Provider: Franklin Maldonado MD Performing Location: [facility] Administered by: Franklin Maldonado MD on 08/14/25 14:26 Dose Route Admin Location Dispensed Lot Number Expiration Date FORMERLY NAMED [facility] Sheet Pile Hammer Operator 40 mg intrabursal left hip bursa 1 mL [id number] 02/12/27 [address]- 1 [employer] Total Dispensed Waste 1 mL 0 % Assessment & Plan Assessment & Plan (1) Trochanteric bursitis, left hip: Comment: Uncontrolled pain. Code(s): M70.62 - Trochanteric bursitis, left hip Category: Medical Plan: left trochanteric bursa injection was given today Discontinue meloxicam Okay to take Tylenol as needed for pain If pain does not resolve after above, he will schedule PT for lower extremity strengthening RTC 3-4 months (2) Paget's disease of bone: Comment: Initially found incidentally on pelvis x-ray involving left pelvis. Nuclear bone scan confirmed involvement of left ilium, pubis and ischium. Elevated alkaline phosphatase, bone specific alkaline phosphatase, C telopeptide on presentation in 2020. Bone turnover markers normalized after Reclast 07/2021 and 07/2022. Bone turnover markers from June 2025 are normal. Bone density from May 2025 is normal. No further treatment is indicated at this time. Code(s): M88.9 - Osteitis deformans of unspecified bone Category: Medical Plan: Bone turnover markers, calcium, phosphorus, vitamin-D we will be checked yearly Orders: Orders AMB Joint Injection/Aspiration Today M70.62 - Trochanteric bursitis, left hip Coding Level of Care Code Est Pt Level 4 (36406) Add On Problem Visit Only Diagnoses Trochanteric bursitis, left hip M70.62 Paget's disease of bone M88.9 CPT Codes Coding - 13107 Large joint: 93540 - Large joint ([id number])
--- OUTSIDE RECORDS SUMMARY | 2025-08-14 17:36 | XMS_ITS | Encounter Summary ---
Author Organization [employer] Address [address] [facility] [address] [place] [address] Care Team Providers Care Trim Technician Name Role Phone Eunice Carmichael Primary Care Provider [phone] Reason for Visit * Reason Comments Med Refill Encounter Details Date Type Department Care Team ([facility] st Contact Info) Description 08/14/2024 Refill [facility] MED & PEDS [address] [place], [place] [phone] Eunice Carmichael ANP [address] [place] [address] Erectile dysfunction due to diseases classified elsewhere [...] elsewhere documented in this encounter Care Teams Trim Technician Relationship Specialty Start Date End Date Eunice Carmichael ANP [address] [place] [phone] PCP - General Family Medicine 04/07/22 documented as of this encounter
--- OUTSIDE RECORDS SUMMARY | 2025-08-14 17:36 | XMS_ITS | Clinical Summary ---
Author Organization [employer] Address [address] [facility] [address] [place] [address] Care Team Providers Care B2B Outside Sales Representative Name Role Phone Martha Simmons RACHEL Primary Care Provider [phone] Allergies Active Allergy Reactions Criticality Noted Date [...] daily. 45 g 1 05/15/20 24 Active tiZANidine (Zanaflex) 2 MG tabletIndications [...] with food 60 tablet 06/22/20 24 Active Januvia 25 MG tabletIndications :Type 2 diabetes mellitus with hyperlipidemia (HCC) TAKE 1 TABLET BY MOUTH EVERY DAY IN THE MORNING 30 tablet 5 5 11:48 AM EST 02/27/20 25 Active pravastatin (Pravachol) 40 MG [...] DAY IN THE EVENING 90 tablet 3 5 11:27 AM EST 03/26/20 25 Active Combivent Respimat 20-100 MCG/ACT inhaler INHALE 1 PUFF 4 TIMES A DAY, MAY TAKE ADDITIONAL PUFFS NEEDED. (MAX OF 6 PUFFS PER DAY) 4 g 5 04/02/20 25 Active Arnuity Ellipta 200 MCG/ACT inhaler INHALE 1 PUFF BY MOUTH EVERY DAY AT THE SAME TIME RINSE MOUTH AFTER USING 30 each 3 5 10:46 AM EST 04/02/20 25 Active lisinopril 40 MG tabletIndications :Essential hypertension TAKE 1 TABLET BY MOUTH EVERY MORNING 90 tablet 1 5 10:46 AM EST 04/17/20 25 Active spironolactone (Aldactone) 25 MG tablet TAKE 1 TABLET BY MOUTH EVERY MORNING 90 tablet 3 5 11:48 AM EST 05/07/20 25 Active NIFEdipine XL (Procardia XL) 30 MG 24 hr tabletIndications :Essential hypertension Take 1 tablet (30 mg) by mouth Once per day. Do not crush, chew, or split. 90 tablet 3 5 12:26 PM EST 06/18/20 25 Active cholecalciferol VITAMIN D (Vitamin D-3) 50 MCG (1999) tabletIndications :Vitamin D deficiency TAKE 1 TABLET BY MOUTH DAILY IN THE MORNING 90 tablet 1 5 11:48 AM EST 07/23/20 25 Active cholecalciferol VITAMIN D (Vitamin D-3) 50 MCG (1999) tabletIndications :Vitamin D deficiency TAKE 1 TABLET BY MOUTH EVERY MORNING 90 tablet 1 12/27/19 25 2024 Discontinued Active Problems Problem Noted Date [...] Encounters Date Type Department Care Team Description 07/22/[address] [facility] [address] [place] [phone] Martha Simmons ANP Vitamin D deficiency 07/16/2025 Results Follow-Up [facility] [address] [place] [phone] Martha Simmons ANP Albumin, Random Urine W/Creatinine 06/19/[address] [facility] [address] [place] [phone] Martha Simmons ANP Prior Authorization 06/18/2025 11:15 AM EST Office Visit [facility] [address] [place] [phone] Martha Simmons ANP Encounter for immunization (Primary Dx); Type 2 diabetes mellitus with hyperlipidemia (HCC); Essential hypertension; Hypertension associated with type 2 diabetes mellitus (HCC); Pulmonary hypertension (CMS/HCC) (HCC); 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; Moderate persistent asthma without complication; Osteitis deformans; Encounter for advance care planning; Primary osteoarthritis of both hips 06/18/2025 Orders Only [facility] [address] [place] [phone] Martha Simmons ANP 06/18/2025 Travel 06/15/[address] [facility] [address] [place] [address] Martha Simmons ANP chart prep 06/05/2025 Results Follow-Up [facility] [address] [place] [address] Martha Simmons ANP XR DEXA APPENDICULAR SKELETON 06/04/2025 Orders Only [facility] External Provider, [facility] from Last 3 Months Immunizations Immunization Administration [...] 60 years or older (1 - Risk 50-74 years 1-dose series) 2004 Hepatitis B Vaccines (3 of 3 - 19+ 3-dose series) 05/08/2024 03/13/2024, 10/11/2023 COVID-19 Vaccine ( - 2024- season) 2025 05/11/2022, 12/08/2021, 06/16/2021, Additional history exists Lipid Panel 06/22/2025 06/22/2024, 11/2021, 02/21/2021 Diabetes: Hemoglobin A1C 09/18/2025 025, 02/05/2025, 10/09/2024, Additional history exists Depression Screening 10/09/2025 10/09/2024, 10/09/19 SDOH Screening 10/09/2025 10/09/2024 Alcohol/Substance Use Screening 02/05/2026 02/05/2025 Diabetes: Urine Protein Screening 06/18/2026 06/18/2025, 06/22/2024, 11/17/2021, Additional history exists Tobacco Screening 06/18/2026 06/18/2025 Colonoscopy 11/25/2026 11/25/2021 [...] on patient's age to complete this topic Goals Goal Patient Goal Type Associated Problems Recent Progress Patient-Stated? Author Help patients manage their type 2 diabetes Care Plan Help patients manage their type 2 diabetes Martha Marcano ANP Weekly blood pressure task Care Plan Weekly blood pressure task Martha Marcano ANP Help patients manage their type 2 diabetes Care Plan Help patients manage their type 2 diabetes Martha Marcano ANP Patient has chronic kidney disease Care Plan Patient has chronic kidney disease Martha Marcano ANP Weekly blood pressure task Care Plan Weekly blood pressure task No Miguelina Orlando Patient has chronic kidney disease Care Plan Patient has chronic kidney disease No Miguelina Orlando Procedures Procedure Name Priority Date/Time Associated Diagnosis Comments POCT GLYCOSYLATED HEMOGLOBIN (HGB A1C) Routine 06/18/2025 11:11 AM EST Type 2 diabetes mellitus with hyperlipidemia (HCC) POCT GLUCOSE (CPT-04598) Routine 06/18/2025 11:08 AM EST Type 2 diabetes mellitus with hyperlipidemia (HCC) ALBUMIN, RANDOM URINE W/CREATININE Routine 06/18/2025 12:00 AM EST XR DEXA APPENDICULAR SKELETON Routine 06/04/2025 9:13 AM EDT LIPID PANEL, STANDARD Routine 06/22/2024 11:11 AM [...] Media Lot # [id number] Lot# Expiration Date Blood Capillary blood specimen / Unknown 06/18/2025 11:11 AM EST us Martha Simmons [facility] POINT OF CARE TEST ENTER/EDIT OR DERABLES Final Result * (ABNORMAL) POCT glucose manually resulted (06/18/2025 11:08 AM EST) Glucose Blood, POC 214(A) 60 - 200 mg/dL QC Media Lot # [id number] Lot# Expiration Date Blood Capillary blood specimen / Unknown 06/18/2025 11:08 AM EST us Martha Simmons [facility] POINT OF CARE TEST ENTER/EDIT OR DERABLES Final Result * Albumin, Random Urine W/Creatinine (06/18/2025 12:00 AM EST) Creatinine, Urine 466.79 mg/dL [facility] Microalbumin Urine 30.0 mg/L [facility] Microalbum Creatinine Ratio Ur 6.4 <30 ug/mg cr [facility] Comment:Albumin/Creatinine R atio Reference Ranges: Normal: < 30 ug/mg creatinine Microalbuminuria: 30 - 300 ug/mg creatinineClinical Albuminuria: > 300 ug/mg creatinine 06/18/2025 06/18/[address] [facility] URINE ORDERABLES Final Resul t [facility] [address] [place] [phone] * XR DEXA APPENDICULAR SKELETON (06/04/2025 9:13 AM EDT) Anatomical Region Laterality Modality Abdomen Radiographic [place] ging 06/04/2025 9:13 AM EDT Narrative 06/05/2025 3:07 PM EDT [place] [facility] [address] [place] [address] Mammography Report Signed Patient: Barber Hernandez MR#: [id number] : 1955 Acct:[id number] Age/Sex: 70 / M ADM Date: 06/04/25 Loc: MAMMO Attending Dr: Franklin Maldonado MD Ordering Physician: Franklin Maldonado MD Results: Date of Service: 06/04/25 Follow Up: Procedure(s): XR DEXA appendicular skeleton Accession Number(s): [id number] cc: MARTHA SIMMONS NP; Franklin Maldonado MD Reason For Exam: M88.9 - Osteitis deformans of unspecified bone EXAMINATION: DXA BONE DENSITY EXTREMITY HISTORY: M88.9 - Osteitis deformans of unspecified bone TECHNIQUE: [employer] Dual energy absorptiometry (DEXA) of the lumbar [...] is a trademark of the [employer]'s [place] for Metabolic Bone Disease, a World Health Organization (WHO) Collaborating Center. Electronically signed by: Javier Oneill MD 06/05/2025 03:04 PM EDT RP Dictated By: Javier Oneill MD Signed By: <Electronically signed by Javier Oneill MD in OV> 06/05/25 1504 DD/ TD/TT: 06/05/25929 Gis Engineer: Procedure Note Donotuseinterpreter, Image - 06/05/2025 [facility]'[address] [place] [address] Mammography Report Signed Patient: Barber HernandezMR#: [id number] : 4Acct:[id number] Age/Sex: 70 / MADM Date: 06/04/25 Loc: HO.MAMMO Attending Dr: Franklin Maldonado MD Ordering Physician: Franklin Maldonadoesults: Date of Service: 06/04/25Follow Up: Procedure(s): XR DEXA appendicular skeleton Accession Number(s): [id number] cc: MARTHA SIMMONS NP; Franklin Maldonado MD Reason For Exam: M88.9 - Osteitis deformans of unspecified bone EXAMINATION: DXA BONE DENSITY EXTREMITY HISTORY: M88.9 - Osteitis deformans of unspecified bone TECHNIQUE: [employer] Dual energy absorptiometry (DEXA) of the lumbar [...] is a trademark of the [employer]'s [place] for Metabolic Bone Disease, a World Health Organization (WHO) Collaborating Center. Electronically signed by: Javier Oneill MD 06/05/2025 03:04 PM EDT Dictated By: Javier Oneill MD Signed By: <Electronically signed by Javier Oneill MD in OV> 06/05/25 1504 DD/ 2 TD/TT: 06/05/25929 Gis Engineer: [facility] External Provider IMG XR PROCEDURES Final Result * (ABNORMAL) Lipid Panel, Standard (06/22/2024 11:11 AM EST) Triglycerides 114 <150 mg/dL [facility] Comment:Desirable Triglyceri de: less than 150 mg/dLBorderline High Triglyceride 150-199 mg/dLHigh Triglyceride: 200-499 mg/dLVery High Triglyceride: greater than or equal to 5OO mg/dL Cholesterol 187 <200 mg/dL [facility] Comment:Desirable Cholestero l: less than 200 mg/dLBorderline High Cholesterol: 200-239 mg/dLHigh Cholesterol: greater than 239 mg/dL LDL Cholesterol Calculated 103(H) <100 mg/dL [facility] Comment:Desirable LDL: less than 100 mg/dLNear Optimal/Above Optimal LDL: 110- 129 mg/dLBorderline High LDL: 130-159 mg/dLHigh LDL: 160-189 mg/dLVery High LDL: greater than or equal to 190 mg/dL HDL Cholesterol 62 >40 mg/dL [facility] Comment:Desirable HDL: great er than 40 mg/dL Note: This HDL assay may give artificially low results in patients with liver disease. Blood Venous blood specimen / Unknown 06/22/2024 11:11 AM EST 06/22/2024 1:14 PM EST Martha Simmons ANP LAB BLOOD ORDERABLES Final Resul t Performing Organization Address City/[facility]/ZIP Co de Phone Number [facility] [address] [place] [address] [phone] * Hm Colonoscopy (11/25/2021) Colonoscopy Normal Normal Historical Provider MD HEALTH MAINTENANCE Final Result * HEPATITIS C AB W/REFL TO HCV RNA, QN, PCR (11/17/2021 8:09 AM EDT) HEPATITIS C ANTIBODY NON-REACT RACHID NON-REACT RACHID [facility] INDEX 0.05 <1.00 [facility] Comment: HCV antibody was non-reactive. There is no laboratory evidence of HCV infection. In most cases, no further action is required. However, if recent HCV exposure is suspected, a test for HCV RNA (test code 77136) is suggested. For additional information please refer to http://education.Sevenpop.Freespee/faq/MJM68i0 (This link is being provided for informational/ educational purposes only.) 11/17/2021 8:09 AM EDT Pat West WHANAU SUPPORT WORKER HISTORICAL/NON ORDERABLE LABS F inal Result Performing Organization Address City/[facility]/ZIP Co de Phone Number [facility] [address] [place] [address], from Last 3 Months or Most Recently Relevant to Health Maintenance Additional Health Concerns Active Problems Noted Date Diagnosed Date Help patients manage their type 2 diabetes 07/16 Weekly blood pressure task 07/16/2025 Help patients manage their type 2 diabetes 07/16 Patient has chronic kidney disease 07/16/2025 Weekly blood pressure task 07/18/2025 Patient has chronic kidney disease 07/18/[address] [facility] MEDICARE ADVANTAGE Care Teams B2B Outside Sales Representative Relationship Specialty Start Date End Date Martha Simmons ANP [address] [place] [phone] PCP - General Family Medicine 04/07/22
--- OUTSIDE RECORDS SUMMARY | 2025-08-14 17:37 | XMS_ITS | Encounter Summary ---
Author Organization [employer] Address [address] [facility] 7[address] [place] [address] Care Team Providers Care Pin Sticker Name Role Phone Eunice Carmichael Primary Care Provider Reason for Visit * Reason Comments Med Refill Encounter Details Date Type Department Care Team ([facility] st Contact Info) Description 01/22/2025 Refill [facility] MED & PEDS [address] [place], [place] [phone] Eunice Carmichael ANP [address] [place] [address] Moderate persistent asthma without complication Social History [...] documented as of this encounter Care Teams Pin Sticker Relationship Specialty Start Date End Date Eunice Carmichael ANP [address] [place] [address] PCP - General Family Medicine 04/07/22 documented as of this encounter
--- OUTSIDE RECORDS SUMMARY | 2025-08-14 17:37 | XMS_ITS | Encounter Summary ---
Author Organization [employer] Address [address] [facility] [address] [place] [address] Care Team Providers Care Medical Grade Shoemaker Name Role Phone Eunice Carmichael Primary Care Provider [phone] Reason for Visit * Reason Comments Med Refill Encounter Details Date Type Department Care Team ([facility] st Contact Info) Description 01/29/2025 Refill [facility] CH[facility] MED & PEDS [address] [place], [place] [phone] Eunice Carmichael ANP [address] [place] [address] Moderate persistent asthma without complication Social History [...] documented as of this encounter Care Teams Medical Grade Shoemaker Relationship Specialty Start Date End Date Eunice Carmichael ANP [address] [place] [address] PCP - General Family Medicine 04/07/22 documented as of this encounter
--- OUTSIDE RECORDS SUMMARY | 2025-08-14 17:37 | XMS_ITS | Encounter Summary ---
Author Organization [employer] Address [address] [facility] [address] [place] [address] Care Team Providers Care Bar Finish Operator Name Role Phone Eunice Carmichael Primary Care Provider [phone] Reason for Visit * Reason Comments Med Refill Encounter Details Date Type Department Care Team ([facility] st Contact Info) Description 01/23/2025 Refill [facility] MED & PEDS [address] [place], [place] [phone] Eunice Carmichael ANP [address] [place] [address] Moderate persistent asthma without complication Social History [...] documented as of this encounter Care Teams Bar Finish Operator Relationship Specialty Start Date End Date Eunice Carmichael ANP [address] [place] [address] PCP - General Family Medicine 04/07/22 documented as of this encounter
--- OUTSIDE RECORDS SUMMARY | 2025-08-14 17:37 | XMS_ITS | Patient Health Record ---
Author Organization [facility] Address [address] [place] [address] Care Team Providers Care [employer] Name Role Phone Colt Antonio MD, Christiano Primary Care Provide r Javier Jose Unavailable [phone] Reason For Referral No Information Medications Medication SIG (Take, Route, Frequency, Duration) Notes Start Date End Date Status hydroCHLOROthiazide 25mg Active Simvastatin 20mg Act christina Norvasc 10mg Active Atenolol 25mg Active Flovent HFA 220mcg A ctive Albuterol Sulfate 90mcg Active Colyte with Flavor Packs 240 GM Solution Reconstituted as directed Orally as directed; Duration: 1 day(s) 12/22/2012 Active Social History Social History Additional Details Category Social Info Options Details Miscellaneous: Marital status: 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 Section Notes: Nonsmoker since 05/2010; no sig alcohol Problems Problem Type SNOMED Code ICD Code Onset Dates Problem Status W/U Status Risk Notes Problem Long-term current use of drug therapy (000682672) Encounter for long-term (current) use of other medications (V58.69) Active confirmed Problem Colon cancer screening (695144543) Colon cancer screening (V76.51) Active confirmed Problem History of polyp of colon (situation) (891051312) History of colon polyps (V12.72) Active confirmed Plan Of Treatment Future Test Test Name Order Date COLONOSCOPY 12/22/2012 Insurance Providers Payer Name Payer Address Payer Phone Subscriber Number Group Number Insured Name Patient Relationship to Insured Coverage Start Date Coverage End Date [facility] [address] [place] [address] [id number] A[place]ND [place] Self - patient is the insured MEDICAID OF [facility] [address] [place] [address] [id number] [place]ND [place] Self - patient is the insured Medical (General) History Medical History History ICD Code HTN Denies AK,DM,CVA,renal disease Asthma Hyperlipidemia Surgical History Surgery Date(Month/Year) Vasectomy
== END 2025-08-14 14:29 | disposition home or self-care (01) ==
LOC: HO.RHES 13:47
PROVIDERS: PCP Nurse Practitioner Primary Care; Visit Provider Internal Medicine Rheumatology
DX: M70.62 Trochanteric bursitis, left hip (principal); M88.9 Osteitis deformans of unspecified bone
CPT/HCPCS: 20610; 99214

== ENCOUNTER → 2025-08-14 13:47 | Outpatient (BNVA) | payer MEDICARE, SELFPAY | PROVIDERS: PCP Nurse Practitioner Primary Care; Visit Provider Internal Medicine Rheumatology | DX: M70.62 Trochanteric bursitis, left hip (principal); M88.88 Osteitis deformans of other bones | CPT/HCPCS: 20610; 99212; J2003; J3301 ==